=== PATIENT | female | born 1995 | race Hispanic/Latino ===

== ENCOUNTER 2018-10-11 04:08 | Emergency (ER) | payer OTHER, SELFPAY ==
[2018-10-11] MEDS ORDERED: KETOROLAC 30 MG/ML INJ ONE (05:15)
[2018-10-11 05:29] LABS: Absolute Lymphocytes (CBC) 4.3 K/uL (0.7-4.9); Basophils % 0.4 % (0-1.3); Hematocrit 36.9 % (36.0-45.0); Lymphocytes % 43.4 % (15.3-44.8); MPV 8.2 fL (7.6-11.3); RBC Red Blood Cell Count 5.27 M/uL (3.86-4.86)
[2018-10-11 05:30] LABS: Urine Bacteria 20-50 /HPF (<20); Urine RBC <5 /HPF (NONE SEEN)
[2018-10-11 05:31] LABS: Urine Culture Reflex Order NOT NEEDED
[2018-10-11 05:40] LABS: Sodium Level 143 mmol/L (136-145)
[2018-10-11 05:41] LABS: ALT/SGPT 38 U/L (12-78); AST/SGOT 15 U/L (15-37); Albumin 3.7 g/dL (3.4-5.0); Alkaline Phosphatase 95 U/L (45-117); BUN Blood Urea Nitrogen 13 mg/dL (7-18); Bicarbonate 25 mmol/L (21-32); Bilirubin Direct < 0.1 mg/dL (0-0.2); Bilirubin Total 0.1 mg/dL (0.2-1.0); Glucose Level 100 mg/dL (74-106); Lipase 152 U/L (73-393); Potassium 3.5 mmol/L (3.5-5.1); Protein, Total 7.5 g/dL (6.4-8.2)
[2018-10-11 05:45] LABS: Urine Blood TRACE (NEG); Urine Glucose NEGATIVE (NEG); Urine Protein NEGATIVE (NEG); Urine Specific Gravity 1.025 (1.005-1.030); Urine pH 5.5 (5.0-7.0)
[2018-10-11 06:33] LABS: Anisocytosis 1+; Blood Morphology Comment NOTED (NOT SEEN); Platelet Estimate ADEQ; Urine White Blood Cell Casts OK
[2018-10-11] MEDS ORDERED: MORPHINE 4 MG/ML SYR ONE (08:17)
--- NOTE | 2018-10-11 09:02 | RAD REPORT ---
EXAM DESCRIPTION: US - Abdomen Exam Limited - 10/11/2018 7:49 am CLINICAL HISTORY: Abdominal pain. COMPARISON: None. FINDINGS: Multiple gallstones. Gallbladder wall is upper limits normal thickness. The biliary tree is normal caliber. This preliminary report was given to Dr. Jones by the technologist IMPRESSION: Cholelithiasis
--- NOTE | 2018-10-11 09:50 | ER ---
Nurse's Notes [facility] Name: Henna Reina Age: 23 yrs Sex: Female : 1995 Arrival Date: 10/11/2018 Time: 04:11 Bed 8 Private MD: Diagnosis: Cholelithiasis Presentation: 10/11 04:20 Presenting complaint: Patient states: that she is having right upper quad pain. It fc started 1 week ago but its only at night. Pt also having nausea. Transition of care: patient was not received from another setting of care. Onset of symptoms was October 04, 2018. Risk Assessment: Do you want to hurt yourself or someone else? Patient reports no desire to harm self or others. Initial Sepsis Screen: Does the patient meet any 2 criteria? No. Patient's initial sepsis screen is negative. Does the patient have a suspected source of infection? No. Patient's initial sepsis screen is negative. Care prior to arrival: None. 04:20 Method Of Arrival: Ambulatory fc 04:20 Acuity: INGRID 3 fc Triage Assessment: 04:58 General: Appears uncomfortable, obese, Behavior is calm, cooperative, appropriate for age. Pain: Complains of pain in right upper quadrant Pain currently is 9 out of 10 on a pain scale. Quality of pain is described as aching, dull, pressure, Pain began 1 week ago Is episodic, Aggravated by eating. EENT: No deficits noted. Neuro: Level of Consciousness is awake, alert, obeys commands, Oriented to person, place, time, situation, Appropriate for age. Cardiovascular: No deficits noted. Respiratory: No deficits noted. GI: Abdomen is obese, Bowel sounds present X 4 quads. Abd is soft Abdomen is tender to palpation in right upper quadrant Reports upper abdominal pain, nausea. : No deficits noted. Derm: Skin is pink, warm \T\ dry. Musculoskeletal: Circulation, motion, and sensation intact. Capillary refill < 3 seconds, Range of motion: intact in all extremities. 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 - Social history:: Smoking status: Patient uses tobacco products, smokes one-half pack cigarettes per day, Patient/guardian denies using alcohol, street drugs. - Ebola Screening: : Patient negative for fever greater than or equal to 101.5 degrees Fahrenheit, and additional compatible Ebola Virus Disease symptoms Patient denies exposure to infectious person Patient denies travel to an Ebola-affected area in the 21 days before illness onset. Screenin:20 Abuse screen: Denies threats or abuse. Nutritional screening: No deficits noted. fc Tuberculosis screening: No symptoms or risk factors identified. Fall Risk None identified. Assessment: 05:23 General: Appears uncomfortable, Behavior is calm, cooperative, appropriate for age. lp1 Pain: Complains of pain in epigastric area and right upper quadrant Pain radiates to back Pain currently is 8 out of 10 on a pain scale. Quality of pain is described as sharp. Neuro: Level of Consciousness is awake, alert, obeys commands, Oriented to person, place, time, situation. Cardiovascular: Patient's skin is warm and dry. Respiratory: Respiratory effort is even, unlabored. GI: Abdomen is obese, Bowel sounds present X 4 quads. Abdomen is tender to palpation in epigastric area and right upper quadrant Reports upper abdominal pain. : No signs and/or symptoms were reported regarding the genitourinary system. EENT: No signs and/or symptoms were reported regarding the EENT system. Derm: Skin is pink, warm \T\ dry. Musculoskeletal: No deficits noted. 06:45 Reassessment: Patient and/or family updated on plan of care and expected duration. Pain lp1 level reassessed. Patient states pain decreased at this time; aware of waiting for ultrasound. 08:18 Reassessment: pt c/o of abdominal pain, rated 6/10, ERD notified, see MAR for orders. jl7 09:36 Reassessment: Patient appears in no apparent distress at this time. Patient and/or ph family updated on plan of care and expected duration. Pain level reassessed. Patient is alert, oriented x 3, equal unlabored respirations, skin warm/dry/pink. ERP at bedside to speak w/ pt, instructed to follow up w/ general surgeon, d/c home w/ prescriptions for pain and nausea medications. Vital Signs: 04:20 BP 118 / 91; Pulse 86; Resp 18; Temp 98.2(O); Pulse Ox 100% on R/A; Weight 121.11 kg fc (R); Height 5 ft. 1 in. (154.94 cm) (R); Pain 9/10; 05:45 BP 118 / 72; Pulse 73; Resp 18; Pulse Ox 100% on R/A; lp1 06:45 BP 130 / 66; Pulse 71; Resp 16; Pulse Ox 100% on R/A; Pain 5/10; lp1 08:15 BP 111 / 70; Pulse 70; Resp 16 S; Pulse Ox 99% on R/A; Pain 6/10; jl7 09:37 BP 120 / 68; Pulse 72; Resp 18; Temp 97.8; Pulse Ox 99% on R/A; ph 04:20 Body Mass Index 50.45 (121.11 kg, 154.94 cm) ED Course: 04:11 Patient arrived in ED. ds1 04:20 Arm band placed on Patient placed in an exam room, on a stretcher. fc 04:20 Patient has correct armband on for positive identification. Placed in gown. Bed in low fc position. Call light in reach. Side rails up X 1. Pulse ox on. NIBP on. 04:20 No provider procedures requiring assistance completed. fc 04:55 Triage completed. fc 05:01 Saurabh Singh MD is Attending Physician. tw4 05:22 Roxana Terry RN is Primary Nurse. lp1 07:09 Attending Physician role handed off by Saurabh Singh MD rn 07:09 Javier Jones MD is Attending Physician. rn 07:52 US Abdomen Limited In Process Unspecified. EDMS 09:27 Evan Madrigal MD is Referral Physician. rn 09:41 IV discontinued, intact, bleeding controlled, No redness/swelling at site. Pressure ph dressing applied. Administered Medications: 05:22 Drug: TORadol 30 mg Route: IVP; Site: right antecubital; lp1 06:49 Follow up: Response: Pain is decreased lp1 08:24 Drug: morphine 4 mg Route: IVP; Site: right antecubital; jl7 09:39 Follow up: Response: No adverse reaction; Pain is decreased ph 09:40 Follow up: Response: RASS: Alert and Calm (0) ph Outcome: 09:27 Discharge ordered by . rn 09:40 Discharged to home ambulatory. ph 09:40 Condition: good 09:40 Discharge instructions given to patient, Instructed on discharge instructions, follow up and referral plans. medication usage, Demonstrated understanding of instructions, follow-up care, medications, Prescriptions given X 2. 09:41 Patient left the ED. ph Signatures: Dispatcher [employer] EDMS Esperanza Mckeon RN RN Mary Chavez ds1 Javier Jones MD MD rn Pena, Laura, RN RN lp1 Geeta Echavarria RN RN ph Leal, Jahala, RN RN jl7 Saurabh Singh MD MD tw4
--- NOTE | 2018-10-11 09:51 | EDPHYS ---
Physician Documentation [facility] Name: Henna Reina Age: 23 yrs Sex: Female : 1995 Arrival Date: 10/11/2018 Time: 04:11 Bed 8 Private MD: ED Physician Javier Jones HPI: 10/11 06:28 This 23 yrs old Female presents to ER via Ambulatory with complaints of tw4 Abdominal Pain, Back Pain. 06:28 The patient presents with abdominal pain in the right upper quadrant. The symptoms do tw4 not radiate. Associated signs and symptoms: none. The symptoms are described as dull. Modifying factors: The symptoms are alleviated by nothing, the symptoms are aggravated by nothing. Severity of pain: At its worst the pain was moderate in the emergency department the pain is unchanged. The patient has not experienced similar symptoms in the past. 06:28 Onset: The symptoms/episode began/occurred 1 week(s) ago, and became worse yesterday. 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 - Social history:: Smoking status: Patient uses tobacco products, smokes one-half pack cigarettes per day, Patient/guardian denies using alcohol, street drugs. - Ebola Screening: : Patient negative for fever greater than or equal to 101.5 degrees Fahrenheit, and additional compatible Ebola Virus Disease symptoms Patient denies exposure to infectious person Patient denies travel to an Ebola-affected area in the 21 days before illness onset. ROS: 06:28 Constitutional: Negative for fever, chills, and weight loss, Cardiovascular: Negative tw4 for chest pain, palpitations, and edema, Respiratory: Negative for shortness of breath, cough, wheezing, and pleuritic chest pain, Back: Negative for injury and pain, MS/Extremity: Negative for injury and deformity, Skin: Negative for injury, rash, and discoloration, Neuro: Negative for headache, weakness, numbness, tingling, and seizure. 06:28 Abdomen/GI: Positive for abdominal pain, Negative for nausea and vomiting, nausea, vomiting, and diarrhea, nausea. Exam: 06:28 Constitutional: This is a well developed, well nourished patient who is awake, alert, tw4 and in no acute distress. Head/Face: Normocephalic, atraumatic. Chest/axilla: Normal chest wall appearance and motion. Nontender with no deformity. No lesions are appreciated. Cardiovascular: Regular rate and rhythm with a normal S1 and S2. No gallops, murmurs, or rubs. Normal PMI, no JVD. No pulse deficits. Respiratory: Lungs have equal breath sounds bilaterally, clear to auscultation and percussion. No rales, rhonchi or wheezes noted. No increased work of breathing, no retractions or nasal flaring. MS/ Extremity: Pulses equal, no cyanosis. Neurovascular intact. Full, normal range of motion. Neuro: Awake and alert, GCS 15, oriented to person, place, time, and situation. Cranial nerves II-XII grossly intact. Motor strength 5/5 in all extremities. Sensory grossly intact. Cerebellar exam normal. Normal gait. Psych: Awake, alert, with orientation to person, place and time. Behavior, mood, and affect are within normal limits. 06:28 Abdomen/GI: Inspection: abdomen appears normal, Bowel sounds: normal, Palpation: moderate abdominal tenderness, in the right upper quadrant. Vital Signs: 04:20 BP 118 / 91; Pulse 86; Resp 18; Temp 98.2(O); Pulse Ox 100% on R/A; Weight 121.11 kg fc (R); Height 5 ft. 1 in. (154.94 cm) (R); Pain 9/10; 05:45 BP 118 / 72; Pulse 73; Resp 18; Pulse Ox 100% on R/A; lp1 06:45 BP 130 / 66; Pulse 71; Resp 16; Pulse Ox 100% on R/A; Pain 5/10; lp1 08:15 BP 111 / 70; Pulse 70; Resp 16 S; Pulse Ox 99% on R/A; Pain 6/10; jl7 09:37 BP 120 / 68; Pulse 72; Resp 18; Temp 97.8; Pulse Ox 99% on R/A; ph 04:20 Body Mass Index 50.45 (121.11 kg, 154.94 cm) fc MDM: 05:01 Patient medically screened. tw4 07:09 ED course: Signed out to me pending RUQ ultrasound. . rn 09:26 Differential diagnosis: cholecystitis, Cholelithiasis, gastritis, gastroesophageal rn reflux disease, pancreatitis. Data reviewed: vital signs, nurses notes, lab test result(s), radiologic studies, ultrasound, and as a result, I will discharge patient. Counseling: I had a detailed discussion with the patient and/or guardian regarding: the historical points, exam findings, and any diagnostic results supporting the discharge/admit diagnosis, lab results, radiology results, the need for outpatient follow up, to return to the emergency department if symptoms worsen or persist or if there are any questions or concerns that arise at home. Response to treatment: the patient's symptoms have markedly improved after treatment, and as a result, I will discharge patient. Special discussion: Based on the patient's Hx, exam, and Dx evaluation, there is no indication for emergent surgery or inpatient Tx. It is understood by the patient/guardian that if the Sx's persist or worsen they need to return immediately for re-evaluation. I discussed with the patient/guardian in detail that at this point there is no indication for admission to the hospital. It is understood, however, that if the symptoms persist or worsen the patient needs to return immediately for re-evaluation. Based on the history and exam findings, there is no indication for further emergent testing or inpatient evaluation. I discussed with the patient/guardian the need to see the general surgeon for further evaluation of the symptoms. ED course: Pt with cholelithiasis, sounds like dealing with it for months, no acute infection or obstruction, will dc home with pain meds and f/u with gen surgery.. 10/11 04:55 Order name: Basic Metabolic Panel; Complete Time: 06:30 4 10/11 06:31 Interpretation: Normal except: CL 110. tw10/11 04:55 Order name: CBC with Diff; Complete Time: 07:06 4 10/11 06:31 Interpretation: Normal except: RBC 5.27; HGB 11.6; MCV 70.0; MCH 22.1; RDW 21.5; PLT tw4 410; MCHC 31.6. 10/11 04:55 Order name: Creatinine for Radiology; Complete Time: 06:30 tw4 10/11 04:55 Order name: Hepatic Function; Complete Time: 06:30 tw4 10/11 06:31 Interpretation: Normal except: GLOB 3.8; A/G 1.0; BILIT 0.1. tw4 10/11 04:55 Order name: Lipase; Complete Time: 06:30 tw4 10/11 04:55 Order name: Urine Microscopic Only; Complete Time: 06:30 tw4 10/11 06:31 Interpretation: Normal except: SQEPI 20-50; UBACT 20-50. tw4 10/11 04:55 Order name: IV Saline Lock; Complete Time: 05:09 tw4 10/11 04:55 Order name: Labs collected and sent; Complete Time: 05:10 tw4 10/11 05:12 Order name: Urine Dipstick--Ancillary (enter results); Complete Time: 06:30 ms5 10/11 05:12 Order name: Urine --Ancillary (enter results); Complete Time: 06:30 [facility] 10/11 06:32 Order name: US Abdomen Limited; Complete Time: 09:26 tw4 10/11 06:33 Order name: CBC Smear Scan; Complete Time: 07:06 EDAK 10/11 04:55 Order name: Urine Dipstick-Ancillary (obtain specimen); Complete Time: 05:04 tw4 Administered Medications: 05:22 Drug: TORadol 30 mg Route: IVP; Site: right antecubital; lp1 06:49 Follow up: Response: Pain is decreased lp1 08:24 Drug: morphine 4 mg Route: IVP; Site: right antecubital; jl7 09:39 Follow up: Response: No adverse reaction; Pain is decreased ph 09:40 Follow up: Response: RASS: Alert and Calm (0) ph Disposition: 10/11/18 09:27 Discharged to Home. Impression: Cholelithiasis. - Condition is Stable. - Discharge Instructions: Cholelithiasis. - Prescriptions for Tylenol- Codeine #3 300-30 mg Oral Tablet - take 1 tablet by ORAL route every 6 hours As needed; 20 tablet. Zofran ODT 4 mg Oral tablet,disintegrating - place 1 tablet by TRANSLINGUAL route every 8 hours As needed; 20 tablet. - Medication Reconciliation Form, Thank You Letter, Antibiotic Education, Prescription Opioid Use form. - Follow up: Evan Madrigal MD; When: As needed; Reason: Recheck today's complaints, Re-evaluation by your physician. - Problem is an ongoing problem. - Symptoms have improved. Signatures: Dispatcher [employer] EDEsperanza Mobley, RN RN Javier García MD MD rn Pena, Laura RN RN lp1 Geeta Echavarria, RN RN Charles Rivera, RN RN jl7 Saurabh Singh MD MD tw4 Corrections: (The following items were deleted from the chart) 06:29 06:28 Onset: The symptoms/episode began/occurred today, tw tw 09:41 09:27 10/11/2018 09:27 Discharged to Home. Impression: Cholelithiasis. Condition is ph Stable. Forms are Medication Reconciliation Form, Thank You Letter, Antibiotic Education, Prescription Opioid Use. Follow up: Evan Madrigal; When: As needed; Reason: Recheck today's complaints, Re-evaluation by your physician. Problem is an ongoing problem. Symptoms have improved. rn
[2018-10-11 10:15] VITALS: O2SAT 99
[2018-10-11 10:16] VITALS: BP 120/68; TEMP 97.8
== END 2018-10-11 09:41 | disposition home or self-care (01) ==
LOC: ER 04:08
DX: K80.20 Calculus of gallbladder without cholecystitis without obstruction (principal); F17.210 Nicotine dependence, cigarettes, uncomplicated
CPT/HCPCS: 36415; 76705; 80048; 80076; 81003; 81015; 81025; 83690; 85025; 96374; 96375; 99284

== ENCOUNTER 2021-01-14 09:09 | Emergency (ER) | payer SELFPAY ==
--- OUTSIDE RECORDS SUMMARY | 2021-01-14 09:13 | XMS REPORT | Continuity of Care Document ---
:1995 Author Organization [facility] t Address [address] [place] [address] Care Team Providers Name Role Phone AFRICA EDGAR Attending Clinician Unavailable Giovanni OAKES Attending Clinician Unavailable Giovanni Jones Attending Clinician Payers Payer Name Policy Type Policy Number Effective Date Expiration Date S ource Advance Directives Directive Decision Effective Termination Comments Source Date Date Healthcare Agents on N/A Univ ersity FileNameRelationshipHealthcare [facility] Agent Medical RelationshipCommunicationFelipa [facility]other[facility] Care [phone] (Mobile) Nehemiah ZavalaSignificant OtherFirst Alternate Health Care [phone] (Mobile) Problems Condition Condition Condition Status Onset Resolution Last Treating Co mments Source Name Details Category Date Date Treatment Clinician Date Nexplanon Nexplanon Disease Active 2017-02 Uni vers insertion insertion 1- ity of 00:00: [address] Encounter Encounter Disease Active 2017-02 Uni vers for for 1-08 [place] о[place] олег 00 Medical management management [place] , , unspecifie unspecifie d type d type BMI BMI Disease Active 2017-02 Univers 40.0-44.9, 40.0-44.9, 1-08 it y of adult adult 00:00: [address] Screening Screening Disease Active 2017-02 Uni vers examinatio examinatio 0-18 it y of n [place] STD [place] 00 Medi jaskaran transmitte transmitte Br anch d disease) d disease) Morbid Morbid Disease Active Univers obesity obesity 1-22 ity of 00:00: [address] Branch Essential Essential Disease Active Uni vers hypertensi hypertensi 1-22 [place] y [place], benign [place] [facility] Allergies, Adverse Reactions, Alerts Allergy Allergy Status Severity Reaction(s) Onset Inactive Treating Comm ents Source Name Type Date Date Clinician NO KNOWN Drug Active Univers ALLERGIE Class ity of S [facility] Social History Social Habit Start Date Stop Date Quantity Comments Source Tobacco use and 2018-05-28 2018-05-28 Never used Universit y of exposure 00:00:00 00:00:00 [facility] Alcohol intake 2018-05-28 2018-05-28 Current University of 00:00:00 00:00:00 non-drinker of [facility] alcohol (finding) [place] Tobacco Comment 2018-01-03 2018-01-03 1-2 cig every Univer sity of 00:00:00 00:00:00 other day [facility] History of 2013-04-26 2017-02-26 Cigarette Smoker Universi ty of tobacco use 00:00:00 00:00:00 [facility] Sex Assigned At [birth year] Universit y of 00:00:00 00:00:00 [facility] Smoking Status Start Date Stop Date Source Current some day smoker 2018-05-28 00:00:00 [facility] Medications Ordered Filled Start Stop Current Ordering Indication Dosage Frequency Signature Comments Components Source Medication Medication Date Date Medication? Clinician (SIG) Name Name traMADOL 2017-02 Yes 50mg Take 1 Univers (ULTRAM) 50 0-28 tablet by ity of mg tablet 00:00: mouth [place] [id number] every 6 Medical (six) Branch hours as needed for Pain (scale 7-10). Immunizations Ordered Filled Immunization Date Status Comments Sourc e Immunization Name Name HPV9 2018-05-28 Completed University of 00:00:00 [facility] HPV9 2017-12-24 Completed University 00:00:00 [facility] HPV9 2017-11-25 Completed University of 00:00:00 [facility] MMR 2017-11-25 Completed University 00:00:00 [facility] TDAP 2017-09-28 Completed University 00:00:00 [facility] TDAP 2015-12-07 Completed University of 00:00:00 [facility] Influenza Virus 2015-11-16 Completed Universit y of Vaccine Quad IM 3+ 00:00:00 [facility] TDAP 2011-10-06 Completed [facility] 00:00:00 [facility] Procedures This patient has no known procedures. Encounters Start End Encounter Admission Attending Care Care Encounter Source Date/Time Date/Time Type Type Clinicians Facility Department ID 2020-06-24 2020-06-24 [id number] Univers 09:00:00 09:00:00 AFRICA [id number] ity [facility] 2020-06-24 2020-06-24 [facility] [id number] Univers 09:00:00 09:00:00 AFRICA rick [facility] 2020-06-23 2020-06-23 Outpatient R ABHI [facility] [id number] Univers 13:15:00 13:15:00 JIL [id number] ity o f [facility] 2020-06-21 2020-06-21 Telephone Abhi [facility] [id number] Univers 00:00:00 00:00:00 Jil Davila 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
--- NOTE | 2021-01-14 10:39 | RAD REPORT ---
EXAM DESCRIPTION: CT - CTFB CLINICAL HISTORY: Pain to right posterior lateral molars;Facial pain COMPARISON: No comparisons TECHNIQUE: Axial 2 mm thick images of the face were obtained with sagittal and coronal reconstructio n images. All CT scans are performed using dose optimization technique as appropriate and may include automated exposure control or mA/KV adjustment according to patient size. FINDINGS: No facial fracture. Mild maxillary sinus and ethmoid air cell thickening. No mastoid effus ion. The orbits are intact. No lymphadenopathy. The parotid and submandibular glands are intact. Intr acranial contents are grossly unremarkable. The temporomandibular joints are located and unremarkable . IMPRESSION: No specific CT findings to explain right-sided facial pain. Mild sinusitis which is favo red chronic.
--- NOTE | 2021-01-14 11:01 | ER ---
Nurse's Notes [facility] Name: Henna Reina Age: 25 yrs Sex: Female : 1995 Arrival Date: 01/14/2021 Time: 09:13 Bed 17 Private MD: Diagnosis: Right facial and neck pain Presentation: 01/14 09:23 Chief complaint: Patient states: Rt side facial swelling and pain x 1day. noticed 6 swelling and pain when trying to eat. Coronavirus screen: Client denies travel out of the [place] in the last 14 days. At this time, the client does not indicate any symptoms associated with coronavirus-19. Ebola Screen: Patient negative for fever greater than or equal to 101.5 degrees Fahrenheit, and additional compatible Ebola Virus Disease symptoms. Initial Sepsis Screen: Does the patient meet any 2 criteria? No. Patient's initial sepsis screen is negative. Does the patient have a suspected source of infection? No. Patient's initial sepsis screen is negative. Risk Assessment: Do you want to hurt yourself or someone else? Patient reports no desire to harm self or others. Onset of symptoms was January 13, 2021. Care prior to arrival: Motrin yesterday. Activity prior to arrival: None. Mechanism of Injury: No Mechanism of Injury. 09:23 Method Of Arrival: Ambulatory [facility] 09:23 Acuity: INGRID 4 6 10:03 Note Pt taken to ct via wheelchair. [facility] Triage Assessment: 09:27 General: Appears Swelling noted to rt jaw line. pt able to speak in complete sentences 6 and no swelling noted to pharynx area. Pain: Complains of pain in right cheek and right jaw Pain currently is 6 out of 10 on a pain scale. Quality of pain is described as aching, Pain began Is continuous, Aggravated by eating, drinking. 09:29 General: Behavior is calm, cooperative. 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 - Social history:: Smoking status: Patient denies any tobacco usage or history of. Screenin:29 Abuse screen: Denies threats or abuse. Nutritional screening: No deficits noted. 6 Tuberculosis screening: No symptoms or risk factors identified. Fall Risk None identified. Assessment: 09:30 General: Appears in no apparent distress. Behavior is calm, cooperative. Pain: 6 Complains of pain in right cheek and right jaw Pain currently is 6 out of 10 on a pain scale. Quality of pain is described as aching, tender, Pain began 1 day ago. Is continuous, Alleviated by rest, Aggravated by eating, drinking, Noted to be quiet/stoic, Also complains of decreased appetite. Vital Signs: 09:23 BP 135 / 82; Pulse 87; Resp 17; Temp 98.2; Pulse Ox 100% ; Weight 122.47 kg; Height 5 [facility] ft. 1 in. (154.94 cm); Pain 6/10; 11:20 BP 111 / 62; Pulse 74; Resp 18; Temp 98.4; jh6 09:23 Body Mass Index 51.02 (122.47 kg, 154.94 cm) [facility] ED Course: 09:13 Patient arrived in ED. mr 09:15 Andre Ramachandran MD is Attending Physician. kdr 09:23 Lizabeth Constantino, RORY is Primary Nurse. 6 09:27 Triage completed. [facility] 09:29 Arm band placed on right wrist. [facility] 09:30 Call light in reach. Side rails up X 1. 6 10:02 CT ordered. 6 10:04 CT Facial Bones W/O Con In Process Unspecified. EDVT 11:29 No provider procedures requiring assistance completed. 6 11:29 Patient did not have IV access during this emergency room visit. NO IV STARTED. 6 Administered Medications: No medications were administered Outcome: 11:00 Discharge ordered by . kdr 11:29 Discharged to home ambulatory. jh6 11:29 Condition: unchanged 11:29 Discharge instructions given to patient, Instructed on discharge instructions, follow up and referral plans. medication usage, Demonstrated understanding of instructions, follow-up care, medications, Prescriptions given X 1. 11:31 Patient left the ED. 6 Signatures: Dispatcher [employer] EDVT Andre Ramachandran MD MD [facility] Lorraine Treadwell mr Lizabeth Constantino, RN RN [facility]
--- NOTE | 2021-01-14 11:01 | EDPHYS ---
Physician Documentation [facility] Name: Henna Reina Age: 25 yrs Sex: Female : 1995 Arrival Date: 01/14/2021 Time: 09:13 Bed 17 Private MD: ED Physician Andre Ramachandran HPI: 01/14 09:52 This 25 yrs old Female presents to ER via Ambulatory with complaints of Mouth kdr Swelling. 09:52 The patient presents with pain, The patient complains of pain to her right upper kdr posterior molar region. Comfort began yesterday. Complains of some mild discomfort with swallowing. She denies any airway or respiratory compromise. She does not appear to be toxic or in any acute distress at this time.. The problem is located in the upper right third molar and upper right second molar. Onset: The symptoms/episode began/occurred yesterday. Duration: The symptoms are continuous, Slightly better today. Modifying factors: The symptoms are alleviated by nothing, the symptoms are aggravated by chewing, Swallowing. Associated signs and symptoms: The patient has no apparent associated signs or symptoms. Severity of symptoms: At their worst the symptoms were mild, in the emergency department the symptoms are unchanged. The patient has not experienced similar symptoms in the past. The patient has not recently seen a physician. 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 - Social history:: Smoking status: Patient denies any tobacco usage or history of. ROS: 09:52 Constitutional: Negative for fever, chills, and weight loss, Eyes: Negative for injury, kdr pain, redness, and discharge, Neck: Negative for injury, pain, and swelling, Cardiovascular: Negative for chest pain, palpitations, and edema, Respiratory: Negative for shortness of breath, cough, wheezing, and pleuritic chest pain, Abdomen/GI: Negative for abdominal pain, nausea, vomiting, diarrhea, and constipation, Back: Negative for injury and pain, : Negative for injury, bleeding, discharge, and swelling, MS/Extremity: Negative for injury and deformity, Skin: Negative for injury, rash, and discoloration, Neuro: Negative for headache, weakness, numbness, tingling, and seizure activity. Psych: Negative for depression, anxiety, suicide ideation, homicidal ideation, and hallucinations, Allergy/Immunology: Negative for hives, rash, and allergies, Endocrine: Negative for neck swelling, polydipsia, polyuria, polyphagia, and marked weight changes, Hematologic/Lymphatic: Negative for swollen nodes, abnormal bleeding, and unusual bruising. 09:52 ENT: Positive for dental pain, Very slight increase in discomfort with swallowing. Exam: 09:52 Constitutional: This is a well developed, well nourished patient who is awake, alert, kdr and in no acute distress. Head/Face: Normocephalic, atraumatic. Eyes: Pupils equal round and reactive to light, extra-ocular motions intact. Lids and lashes normal. Conjunctiva and sclera are non-icteric and not injected. Cornea within normal limits. Periorbital areas with no swelling, redness, or edema. Neck: Trachea midline, no thyromegaly or masses palpated, and no cervical lymphadenopathy. Supple, full range of motion without nuchal rigidity, or vertebral point tenderness. No Meningismus. Chest/axilla: Normal chest wall appearance and motion. Nontender with no deformity. No lesions are appreciated. Cardiovascular: Regular rate and rhythm with a normal S1 and S2. No gallops, murmurs, or rubs. Normal PMI, no JVD. No pulse deficits. Respiratory: Lungs have equal breath sounds bilaterally, clear to auscultation and percussion. No rales, rhonchi or wheezes noted. No increased work of breathing, no retractions or nasal flaring. Abdomen/GI: Soft, non-tender, with normal bowel sounds. No distension or tympany. No guarding or rebound. No evidence of tenderness throughout. Back: No spinal tenderness. No costovertebral tenderness. Full range of motion. Skin: Warm, dry with normal turgor. Normal color with no rashes, no lesions, and no evidence of cellulitis. MS/ Extremity: Pulses equal, no cyanosis. Neurovascular intact. Full, normal range of motion. Neuro: Awake and alert, GCS 15, oriented to person, place, time, and situation. Cranial nerves II-XII grossly intact. Motor strength 5/5 in all extremities. Sensory grossly intact. Cerebellar exam normal. Normal gait. Psych: Awake, alert, with orientation to person, place and time. Behavior, mood, and affect are within normal limits. 09:52 ENT: Dental exam: pain, that is mild, specifically in the upper right third molar (#1) and upper right second molar (#2), Voice: is normal. Vital Signs: 09:23 BP 135 / 82; Pulse 87; Resp 17; Temp 98.2; Pulse Ox 100% ; Weight 122.47 kg; Height 5 jh6 ft. 1 in. (154.94 cm); Pain 6/10; 11:20 BP 111 / 62; Pulse 74; Resp 18; Temp 98.4; jh6 09:23 Body Mass Index 51.02 (122.47 kg, 154.94 cm) [facility] MDM: 09:52 Data reviewed: vital signs, nurses notes, lab test result(s), radiologic studies. kdr Counseling: I had a detailed discussion with the patient and/or guardian regarding: the historical points, exam findings, and any diagnostic results supporting the discharge/admit diagnosis, radiology results, the need for outpatient follow up. 11:00 Patient medically screened. kdr 01/14 09:51 Order name: CT Facial Bones W/O Con; Complete Time: 10:59 kdr Administered Medications: No medications were administered Disposition Summary: 01/14/21 11:00 Discharge Ordered Location: Home kdr Problem: new kdr Symptoms: have improved kdr Condition: Stable kdr Diagnosis - Right facial and neck pain kdr Followup: kdr - With: Private Physician - When: 2 - 3 days - Reason: If symptoms return, Further diagnostic work-up, Recheck today's complaints, Continuance of care, Re-evaluation by your physician Discharge Instructions: - Discharge Summary Sheet kdr - Dental Pain, [id number] kdr - Sore Throat, [id number] kdr Forms: - Medication Reconciliation Form kdr - Thank You Letter kdr Prescriptions: - Ibuprofen 600 mg Oral Tablet - take 1 tablet by ORAL route every 6 hours As needed take with food; 30 tablet; kdr Refills: 0, Product Selection Permitted Signatures: Dispatcher [employer] Andre Morin MD MD kdr Lizabeth Constantino RN RN 6
[2021-01-14 12:15] VITALS: O2SAT 100
[2021-01-14 12:16] VITALS: BP 111/62; TEMP 98.4
== END 2021-01-14 11:31 | disposition home or self-care (01) ==
LOC: ER 09:09
DX: K08.89 Other specified disorders of teeth and supporting structures (principal); R51.9 Headache, unspecified; M54.2 Cervicalgia
CPT/HCPCS: 70486; 76377; 99283

== ENCOUNTER 2021-08-29 16:12 | Emergency (ER) | payer SELFPAY ==
[2021-08-29] MEDS ORDERED: LIDOCAINE 1% MPF 5 ML VIAL ONE (17:23)
[2021-08-29] MEDS ORDERED: BUPIVACAINE 0.25% PF 10 ML VIAL ONE (17:24)
--- NOTE | 2021-08-29 17:40 | ER ---
Nurse's Notes [facility] Name: Henna Reina Age: 26 yrs Sex: Female : 1995 Arrival Date: 08/29/2021 Time: 16:14 Bed 13 Private MD: Diagnosis: Cellulitis of abdominal wall;Cutaneous abscess of abdominal wall;Headache Presentation: 08/29 16:33 Chief complaint: Patient states: pt reports having a abscess on upper left abdominal. [place] Coronavirus screen: Vaccine status: Patient reports being unvaccinated. Ebola Screen: Patient denies travel to an Ebola-affected area in the 21 days before illness onset. Initial Sepsis Screen: Does the patient meet any 2 criteria? HR > 90 bpm. No. Patient's initial sepsis screen is negative. Does the patient have a suspected source of infection? Yes: Skin breakdown/wound. Risk Assessment: Do you want to hurt yourself or someone else? Patient reports no desire to harm self or others. Onset of symptoms was July 2021. 16:33 Method Of Arrival: Ambulatory [facility] 16:33 Acuity: INGRID 3 [facility] Triage Assessment: 16:33 Headache History: The patient has had previous headaches. General: Appears in no bonilla apparent distress. Behavior is calm, cooperative. Pain: Pain currently is 8 out of 10 on a pain scale. Pain began gradually, Also complains of wisdom teeth. Neuro: Level of Consciousness is awake, alert, obeys commands, Oriented to person, place, time, situation. 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 - Social history:: Smoking status: Reported history of juuling and/or vaping. Screenin:30 Abuse screen: Denies threats or abuse. Denies injuries from another. [facility] 16:30 Nutritional screening: No deficits noted. Tuberculosis screening: No symptoms or risk 6 factors identified. Fall Risk None identified. Assessment: 16:30 General: Appears in no apparent distress. Behavior is calm, cooperative. [facility] 16:30 Pain: Complains of pain in left upper quadrant Pain currently is 4 out of 10 on a pain 6 scale. Quality of pain is described as burning, sharp, Pain began suddenly, Is continuous. Derm: Abscess located on left upper quadrant is dime sized, has no drainage, is red, Reports burning, pain. 18:15 Reassessment: no reaction to meds given. verbal understanding of wound care and follow 6 up meds. Vital Signs: 16:33 BP 129 / 84; Pulse 112; Resp 19; Temp 98.3(O); Pulse Ox 100% ; Weight 107.5 kg; Height bonilla 5 ft. 1 in. (154.94 cm); 16:33 Body Mass Index 44.78 (107.50 kg, 154.94 cm) ED Course: 16:14 Patient arrived in ED. j6 16:33 Andre Ramachandran MD is Attending Physician. [facility] 16:33 Arm band placed on. 16:35 Bed in low position. Call light in reach. jh6 16:38 Triage completed. [facility]illa 17:02 Lizabeth Constantino, RN is Primary Nurse. 6 17:20 Assist provider with I \T\ D: of an abscess on left upper abd area. jh6 17:54 Patient did not have IV access during this emergency room visit. 6 Administered Medications: 17:25 Drug: Lidocaine (1 %) 5 mg Route: Infiltration; jh6 17:25 Drug: Marcaine (bupivacaine) (0.25 %) 1 ml Route: Infiltration; jh6 17:50 Drug: KeFLEX (cephalexin) 500 mg Route: PO; jh6 18:15 Follow up: Response: No adverse reaction 6 18:05 Drug: Ibuprofen 800 mg Route: PO; jh6 18:16 Follow up: Response: No adverse reaction [facility] Medication: 17:54 VIS not applicable for this client. 6 Outcome: 17:39 Discharge ordered by . kdr 17:54 Discharged to home ambulatory. jh6 17:54 Condition: good 17:54 Discharge instructions given to patient, Instructed on discharge instructions, follow up and referral plans. Demonstrated understanding of instructions, follow-up care, medications, wound care, Prescriptions given X 2. 18:16 Patient left the ED. 6 Signatures: Andre Ramachandran MD MD kdr Jeffries, Jennifer j6 Lizabeth Constantino, RN RN [facility] Au-Stager, Tosin, RN RN bon[facility]
--- NOTE | 2021-08-29 17:40 | EDPHYS ---
Physician Documentation [facility] Name: Henna Reina Age: 26 yrs Sex: Female : 1995 Arrival Date: 08/29/2021 Time: 16:14 Bed 13 Private MD: ED Physician Andre Ramachandran HPI: 08/29 17:42 This 26 yrs old Female presents to ER via Ambulatory with complaints of kdr Abscess, Headache. 17:42 The patient presents with an abscess of the , The patient presents with cellulitis of kdr the left upper quadrant. Description: The affected area is small, confluent, erythematous, fluctuant, pointed, raised, swollen, tense, warm. Onset: The symptoms/episode began/occurred 3 day(s) ago. Possible cause(s): unknown. Associated signs and symptoms: Pertinent positives: headache, Pertinent negatives:. Modifying factors: the symptoms are alleviated by nothing, the symptoms are aggravated by pressure, squeezing the lesion and expressing the contents, touching. Severity of symptoms: At their worst the symptoms were mild, in the emergency department the symptoms are unchanged. The patient has not experienced similar symptoms in the past. The patient has not recently seen a physician. 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 - Social history:: Smoking status: Reported history of juuling and/or vaping. ROS: 17:42 Constitutional: Negative for fever, chills, and weight loss, Eyes: Negative for injury, kdr pain, redness, and discharge, Neck: Negative for injury, pain, and swelling, Cardiovascular: Negative for chest pain, palpitations, and edema, Abdomen/GI: Negative for abdominal pain, nausea, vomiting, diarrhea, and constipation, Back: Negative for injury and pain, : Negative for injury, bleeding, discharge, and swelling, MS/Extremity: Negative for injury and deformity, Skin: Negative for injury, rash, and discoloration. 17:42 Abdomen/GI: Positive for Patient has a 1 cm diameter raised pointing fluctuant area on the anterior aspect of her left upper quadrant. She had attempted to open up the abscess and get it draining last week but it did not fully drain. There was some foul-smelling drainage.. Exam: 17:42 Constitutional: This is a well developed, well nourished patient who is awake, alert, kdr and in no acute distress. Head/Face: Normocephalic, atraumatic. Eyes: Pupils equal round and reactive to light, extra-ocular motions intact. Lids and lashes normal. Conjunctiva and sclera are non-icteric and not injected. Cornea within normal limits. Periorbital areas with no swelling, redness, or edema. Neck: Trachea midline, no thyromegaly or masses palpated, and no cervical lymphadenopathy. Supple, full range of motion without nuchal rigidity, or vertebral point tenderness. No Meningismus. Chest/axilla: Normal chest wall appearance and motion. Nontender with no deformity. No lesions are appreciated. Cardiovascular: Regular rate and rhythm with a normal S1 and S2. No gallops, murmurs, or rubs. Normal PMI, no JVD. No pulse deficits. Abdomen/GI: Soft, non-tender, with normal bowel sounds. No distension or tympany. No guarding or rebound. No evidence of tenderness throughout. Back: No spinal tenderness. No costovertebral tenderness. Full range of motion. Skin: Warm, dry with normal turgor. Normal color with no rashes, no lesions, and no evidence of cellulitis. MS/ Extremity: Pulses equal, no cyanosis. Neurovascular intact. Full, normal range of motion. Neuro: Awake and alert, GCS 15, oriented to person, place, time, and situation. Cranial nerves II-XII grossly intact. Motor strength 5/5 in all extremities. Sensory grossly intact. Cerebellar exam normal. Normal gait. 17:42 Abdomen/GI: There is a lesion in the left upper quadrant as described above that we will need I\T\D.. Vital Signs: 16:33 BP 129 / 84; Pulse 112; Resp 19; Temp 98.3(O); Pulse Ox 100% ; Weight 107.5 kg; Height bonilla 5 ft. 1 in. (154.94 cm); 16:33 Body Mass Index 44.78 (107.50 kg, 154.94 cm) [facility] Procedures: 17:42 I \T\ D: Incision and drainage was performed for an abscess of the left left upper kdr quadrant Prepped with Hibiclens. Anesthetized with 2 ml's 1% Lidocaine w/ Epi. Marcaine. Incised with #11 blade. Drained small amount Packed with sterile gauze, Dressing: sterile 4x4 gauze, non-Adherent dressing, telfa, the patient tolerated the procedure well. MDM: 17:39 Patient medically screened. kdr 17:51 Data reviewed: vital signs, lab test result(s), radiologic studies. Counseling: I had a kdr detailed discussion with the patient and/or guardian regarding: the historical points, exam findings, and any diagnostic results supporting the discharge/admit diagnosis, the need for outpatient follow up. Administered Medications: 17:25 Drug: Lidocaine (1 %) 5 mg Route: Infiltration; [facility] 17:25 Drug: Marcaine (bupivacaine) (0.25 %) 1 ml Route: Infiltration; [facility] 17:50 Drug: KeFLEX (cephalexin) 500 mg Route: PO; [facility] 18:15 Follow up: Response: No adverse reaction [facility] 18:05 Drug: Ibuprofen 800 mg Route: PO; [facility] 18:16 Follow up: Response: No adverse reaction [facility] Disposition Summary: 08/29/21 17:39 Discharge Ordered Location: Home kdr Problem: new kdr Symptoms: have improved kdr Condition: Stable kdr Diagnosis - Cellulitis of abdominal wall kdr - Cutaneous abscess of abdominal wall kdr - Headache kdr Followup: kdr - With: Private Physician - When: 2 - 3 days - Reason: If symptoms return, Further diagnostic work-up, Recheck today's complaints, Continuance of care, Re-evaluation by your physician Discharge Instructions: - Discharge Summary Sheet kdr - Skin Abscess kdr - Cellulitis, Adult kdr - General Headache Without Cause kdr Forms: - Medication Reconciliation Form kdr - Thank You Letter kdr - Antibiotic Education kdr - Work release form iw Prescriptions: - Cephalexin 500 mg Oral Capsule - take 1 capsule by ORAL route every 12 hours for 5 days; 10 capsule; Refills: 0, kdr Product Selection Permitted - Ibuprofen 600 mg Oral Tablet - take 1 tablet by ORAL route every 6 hours As needed take with food; 30 tablet; kdr Refills: 0, Product Selection Permitted Signatures: Andre Ramachandran MD MD kdr Hastedt, Jennifer, RN RN [facility] Tosin Petersen RN RN bon[facility]
[2021-08-29] MEDS ORDERED: CEPHALEXIN 250 MG CAP ONE (17:51)
[2021-08-29] MEDS ORDERED: IBUPROFEN 400 MG TAB ONE (18:05)
[2021-08-29 19:50] VITALS: BP 129/84; TEMP 98.3; O2SAT 100
--- OUTSIDE RECORDS SUMMARY | 2021-09-14 11:19 | XMS REPORT | Continuity of Care Document ---
:1995 Author Organization [facility] t Address [address] [place] [address] Care Team Providers Name Role Phone Pcp, Patient Does Not Have A Primary Care Physician [id number] Cookie EDGAR Attending Clinician Unavailable Cookie Edgar DO Attending Clinician Doctor Unassigned, Name Attending Clinician Unavailable Tala COPE, N Attending Clinician Thong EDGAR Attending Clinician Unavailable Giovanni MOE Attending Clinician Unavailable Giovanni Jones Attending Clinician Payers Payer Name Policy Type Policy Number Effective Date Expiration Date S ource Problems Condition Condition Condition Status Onset Resolution Last Treating Co mments Source Name Details Category Date Date Treatment Clinician Date Nexplanon Nexplanon Disease Active 2017-02 Uni vers insertion insertion 03-26 ity of 00:00: [address] Encounter Encounter Disease Active 2017-02 Uni vers for for 08 [place] 00 Medical management management Br anch , , unspecifie unspecifie d type d type BMI BMI Disease Active 2017-02 Univers 40.0-44.9, 40.0-44.9, 1-08 it y of adult adult 00:00: [address] Screening Screening Disease Active 2017-02 Uni vers examinatio examinatio 0-18 it y of n [place] STD [place] Medi jaskaran transmitte transmitte Br anch d disease) d disease) Morbid Morbid Disease Active Univers obesity obesity 03-19 ity of 00:00: [address] Branch Essential Essential Disease Active Uni vers hypertensi hypertensi - [place] benign [place] [facility] Allergies, Adverse Reactions, Alerts Allergy Allergy Status Severity Reaction(s) Onset Inactive Treating Comm ents Source Name Type Date Date Clinician NO KNOWN Drug Active Univers ALLERGIE Class ity of S [facility] Social History Social Habit Start Date Stop Date Quantity Comments Source Exposure to Not sure [facility] SARS-CoV-2 [facility] (event) [place] Alcohol intake 2021-07-07 2021-07-07 0 /d University of 00:00:00 00:00:00 [facility] Tobacco use and 2018-01-03 2018-01-03 Never used Universit y of exposure 00:00:00 00:00:00 [facility] Tobacco Comment 2018-01-03 2018-01-03 1-2 cig every Univer sity of 00:00:00 00:00:00 other day [facility] History of 2013-04-26 2017-02-26 Cigarette Smoker Universi ty of tobacco use 00:00:00 00:00:00 [facility] Sex Assigned At [birth year] Universit y of 00:00:00 00:00:00 [facility] Smoking Status Start Date Stop Date Source Current some day smoker 2018-01-03 00:00:00 Univ ersity of [facility] Medications Ordered Filled Start Stop Current Ordering Indication Dosage Frequency Signature Comments Components Source Medication Medication Date Date Medication? Clinician (SIG) Name Name clindamycin 2020-02- No [id number] 300mg Take 1 Univers 300 mg 03-17 capsule by ity of capsule 00:00: 05:59 mouth 4 [place] 00 :00 (four) Medical times Branch daily for 7 days. traMADOL 2017-02 Yes 50mg Take 1 Univers (ULTRAM) 50 0-28 tablet by ity of mg tablet 00:00: mouth [place] 00 every 6 Medical (six) Branch hours as needed for Pain (scale 7-10). traMADOL 2017-02 Yes 50mg Take 1 Univers (ULTRAM) 50 0-28 tablet by ity of mg tablet 00:00: mouth [place] 00 every 6 Medical (six) Branch hours as needed for Pain (scale 7-10). traMADOL 2017-02 Yes 50mg Take 1 Univers (ULTRAM) 50 0-28 tablet by ity of mg tablet 00:00: mouth [place] 00 every 6 Medical (six) Branch hours as needed for Pain (scale 7-10). traMADOL 2017-02 Yes 50mg Take 1 Univers (ULTRAM) 50 0-28 tablet by ity of mg tablet 00:00: mouth [place] 00 every 6 Medical (six) Branch hours as needed for Pain (scale 7-10). traMADOL 2017-02 Yes 50mg Take 1 Univers (ULTRAM) 50 0-28 tablet by ity of mg tablet 00:00: mouth [place] 00 every 6 Medical (six) Branch hours as needed for Pain (scale 7-10). Immunizations Ordered Filled Immunization Date Status Comments [facility] e Immunization Name Name [facility] 2018-05-28 Completed University of 00:00:00 [facility] 2018-05-28 Completed University of 00:00:00 [facility] 2018-05-28 Completed University of 00:00:00 [facility] 2018-05-28 Completed University of 00:00:00 [facility] 2018-05-28 Completed University of 00:00:00 [facility] 2017-12-24 Completed University of 00:00:00 [facility] 2017-12-24 Completed University of 00:00:00 [facility] 2017-12-24 Completed University of 00:00:00 [facility] HPV9 2017-12-24 Completed University of 00:00:00 [facility] HPV9 2017-12-24 Completed University of 00:00:00 [facility] 2017-11-25 Completed University of 00:00:00 [facility] MMR 2017-11-25 Completed University of 00:00:00 [facility] HPV9 2017-11-25 Completed University of 00:00:00 [facility] MMR 2017-11-25 Completed University of 00:00:00 [facility] 2017-11-25 Completed University of 00:00:00 [facility] MMR 2017-11-25 Completed University of 00:00:00 [facility] HPV9 2017-11-25 Completed University of 00:00:00 [facility] MMR 2017-11-25 Completed University of 00:00:00 [facility] HPV9 2017-11-25 Completed University of 00:00:00 [facility] MMR 2017-11-25 Completed University of 00:00:00 [facility] Branch TDAP 2017-09-28 Completed University of 00:00:00 [facility] TDAP 2017-09-28 Completed University of 00:00:00 [facility] TDAP 2017-09-28 Completed University of 00:00:00 [facility] TDAP 2017-09-28 Completed University of 00:00:00 [facility] TDAP 2017-09-28 Completed University of 00:00:00 [facility] TDAP 2015-12-07 Completed University of 00:00:00 [facility] TDAP 2015-12-07 Completed University of 00:00:00 [facility] TDAP 2015-12-07 Completed University of 00:00:00 [facility] TDAP 2015-12-07 Completed University of 00:00:00 [facility] TDAP 2015-12-07 Completed University of 00:00:00 [facility] Influenza Virus 2015-11-16 Completed Universit y of Vaccine Quad IM 3+ 00:00:00 [facility] Influenza Virus 2015-11-16 Completed Universit y of Vaccine Quad IM 3+ 00:00:00 [facility] Influenza Virus 2015-11-16 Completed Universit y of Vaccine Quad IM 3+ 00:00:00 [facility] Influenza Virus 2015-11-16 Completed Universit y of Vaccine Quad IM 3+ 00:00:00 [facility] Influenza Virus 2015-11-16 Completed Universit y of Vaccine Quad IM 3+ 00:00:00 [facility] TDAP 2011-10-06 Completed University of 00:00:00 [facility] TDAP 2011-10-06 Completed University of 00:00:00 [facility] TDAP 2011-10-06 Completed University of 00:00:00 [facility] TDAP 2011-10-06 Completed University of 00:00:00 [facility] TDAP 2011-10-06 Completed University of 00:00:00 [facility] Vital Signs Vital Name Observation Time Observation Value Comments Source Systolic blood 2021-07-07 14:47:00 135 mm[Hg] Univer sity of pressure [place] [facility] Diastolic blood 2021-07-07 14:47:00 78 mm[Hg] Unive rsity of pressure [place] [facility] Heart rate 2021-07-07 14:47:00 84 /min Universi ty of [facility] Body temperature 2021-07-07 14:47:00 36.22 Nighat Univ ersity of [place] [facility] Respiratory rate 2021-07-07 14:47:00 18 /min Univ ersity of [place] [facility] Body height 2021-07-07 14:47:00 154.9 cm [facility]i ty [facility] Body weight 2021-07-07 14:47:00 114.306 kg Universi ty [facility] [place] [facility] BMI 2021-07-07 14:47:00 47.61 kg/m2 Universi ty [facility] Oxygen saturation in 2021-07-07 14:47:00 98 /min University of Arterial blood by [facility] Pulse oximetry Branch Systolic blood 2021-01-15 16:01:00 133 mm[Hg] Univer sity of pressure [facility] Diastolic blood 2021-01-15 16:01:00 80 mm[Hg] Unive rsity of pressure [facility] Heart rate 2021-01-15 16:01:00 103 /min Universi ty [facility] [place] [facility] Body temperature 2021-01-15 16:01:00 37.11 Nighat Univ ersity of [place] [facility] Respiratory rate 2021-01-15 16:01:00 18 /min Univ ersity of [place] [facility] [place] Body height 2021-01-15 16:01:00 154.9 cm Universi ty [facility] [place] [facility] Body weight 2021-01-15 16:01:00 122.471 kg Universi ty [facility] [place] [facility] BMI 2021-01-15 16:01:00 51.02 kg/m2 [facility]i ty [facility] [place] [facility] Oxygen saturation in 2021-01-15 16:01:00 98 /min University of Arterial blood by [place] [employer] [facility] Pulse oximetry Branch Procedures Procedure Date / Time Performed Performing Clinician Sourc e RAPID STREP SCREEN FOR 2021-07-07 14:52:00 Gregoria Edgar [facility] A Medical Branch NOTICE OF PRIVACY 2021-07-07 14:41:32 Doctor Unassigned, No Univ [facility] PRACTICES Name Medical Branch CONSENT/REFUSAL FOR 2021-07-07 14:41:11 Doctor Unassigned, No [facility] DIAGNOSIS AND [facility] TREATMENT ASSIGNMENT OF BENEFITS 2021-01-15 16:11:51 Doctor Unassigned, No [facility] Encounters Start End Encounter Admission Attending Care Care Encounter Source Date/Time Date/Time Type Type Clinicians Facility Department ID 2021-07-07 2021-07-07 Emergency X TALA [facility] ERT [id number] Univers 09:50:00 11:12:00 GREGORIA ity [facility] 2021-07-07 2021-07-07 [facility] [id number] Univers 09:50:00 11:12:00 Gregoria JOHNSON [id number] ity of [place] [id number] [facility] [id number] [place] [id number] [place] 2021-07-07 2021-07-07 Orders Doctor GARIBAY [id number] Univers 00:00:00 00:00:00 Only Unassigned, ROBIN [id number] ity of [place] [facility] [id number] Kay[place] as [id number] [facility] 009 Branch 2021-03-28 2021-03-28 [facility] [id number] Univers 00:00:00 00:00:00 Hermila 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 [id number] it y of [facility] [id number] [place] as MATERNAL [id number] Med ical & CHILD [address] [place] [address] 2021-01-15 2021-01-15 Emergency [facility] [id number] Univers 10:02:00 10:22:00 GREGORIA rick [facility] 2021-01-15 2021-01-15 [facility] [id number] Univers 10:02:00 10:22:00 Gregoria JOHNSON [id number] ity of [place] [id number] [facility] [id number] [address] 2020-06-24 2020-06-24 Outpatient R TALA, [facility] [id number] Univers 09:00:00 09:00:00 HERMILA [id number] ity [facility] 2020-06-24 2020-06-24 [facility] [id number] Univers 09:00:00 09:00:00 HERMILA itpark [facility] 2020-06-23 2020-06-23 [facility] [id number] Univers 13:15:00 13:15:00 JIL [id number] ity o f [facility] 2020-06-21 2020-06-21 [facility] [id number] Univers 00:00:00 00:00:00 Jil Davila 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
== END 2021-08-29 18:16 | disposition home or self-care (01) ==
LOC: ER 16:12
PROC: 0H97XZZ Drainage of Abdomen Skin, External Approach (ICD-10-PCS; principal; 2021-08-29)
DX: L02.211 Cutaneous abscess of abdominal wall (principal); L03.311 Cellulitis of abdominal wall; R51.9 Headache, unspecified
CPT/HCPCS: 99283

== ENCOUNTER 2022-07-25 19:30 | Emergency (ER) | payer SELFPAY ==
--- OUTSIDE RECORDS SUMMARY | 2022-07-25 19:34 | XMS REPORT | Continuity of Care Document ---
:1995 Author Organization [facility] t Address [address] [facility]. [address] [place] [address] Care Team Providers Name Role Phone PCP, PATIENT DOES NOT HAVE A Primary Care Physician Unavaila NUHA Peacock Attending Clinician Unavailable NUHA REIS Attending Clinician Unavailable MARCA Attending Clinician Unavailable GREGORIA EDGAR Attending Clinician Unavailable Gregoria Edgar DO Attending Clinician Doctor Unassigned, [place] Attending Clinician Unavailable Hermila Oleary Attending Clinician HERMILA EDGAR Attending Clinician Unavailable Jil Jones Attending Clinician HASEEB Admitting Clinician Unavailable Payers Payer Name Policy Type Policy Number Effective Date Expiration Date S ource Problems Condition Condition Condition Status Onset Resolution Last Treating Co mments Source Name Details Category Date Date Treatment Clinician Date Nexplanon Nexplanon Disease Active 2017-02 Uni vers insertion insertion 03-26 ity of 00:00: [address] Branch Encounter Encounter Disease Active 2017-02 Uni vers for for 03-05 [place] 00 Medical management management Br anch , , unspecifie unspecifie d type d type BMI BMI Disease Active 2017-02 Univers 40.0-44.9, 40.0-44.9, -08 it y of adult adult 00:00: [place] 00 [facility] Screening Screening Disease Active 2017-02 Uni vers examinatio examinatio 0-18 it y of n for STD n [place] STD [place] ([place] (sexually 00 Medi jaskaran transmitte transmitte Br anch d disease) d disease) Morbid Morbid Disease Active Univers obesity obesity 1-22 ity of 00:00: [place] 00 [facility] Branch Essential Essential Disease Active Uni vers hypertensi hypertensi 1-22 [place] of on, benign [place] [facility] Allergies, Adverse Reactions, Alerts Allergy Allergy Status Severity Reaction(s) Onset Inactive Treating Comm ents Source Name Type Date Date Clinician NO KNOWN Drug Active Univers ALLERGIE Class ity of S [facility] Social History Social Habit Start Date Stop Date Quantity Comments Source Exposure to Not sure [place] of SARS-CoV-2 [place] [facility] (event) Branch Alcohol intake 2021-07-07 2021-07-07 0 /d University of 00:00:00 00:00:00 [facility] Tobacco use and 2018-01-03 2018-01-03 Never used Universit y of exposure 00:00:00 00:00:00 [facility] Tobacco Comment 2018-01-03 2018-01-03 1-2 cig every Univer sity of 00:00:00 00:00:[address] [facility] History of 2013-04-26 2017-02-26 Cigarette Smoker Universi ty of tobacco use 00:00:00 00:00:00 [facility] Sex Assigned At [birth year] Universit y of 00:00:00 00:00:00 [facility] Smoking Status Start Date Stop Date Source Never Smoker Ole [facility] Program Current some day smoker 2018-01-03 00:00:00 [facility] Medications Ordered Filled Start Stop Current Ordering Indication Dosage Frequency Signature Comments Components Source Medication Medication Date Date Medication? Clinician (SIG) Name Name clindamycin 2020-02- No [id number] 300mg Take 1 Univers 300 mg 1-20 01-23 capsule by ity of capsule 00:00: 05:59 mouth 4 [place] 00 :00 (four) Medical times [place] daily for 7 days. traMADOL 2017-02 Yes [...] hours as needed for Pain (scale 7-10). phentermine phentermine No phentermin [place] 37.5 mg 37.5 mg e 37.5 mg da tablet TAKE tablet TAKE tablet [facility] ONE (1) ONE (1) TAKE ONE al TABLET(S) TABLET(S) (1) Healt h BY MOUTH BY MOUTH TABLET(S) Ou treac ONCE A DAY. ONCE A DAY. BY MOUTH h ONCE A Program DAY. Immunizations Ordered Filled Immunization Date Status Comments [facility] e Immunization Name Name [facility] 2018-05-28 Completed University :: [facility] 2018-05-28 Completed University : [facility] 2018-05-28 Completed University :: [facility] 2018-05-28 Completed University :: [facility] 2018-05-28 Completed University :: [facility] 2017-12-24 Completed University :: [facility] 2017-12-24 Completed University :: [facility] 2017-12-24 Completed University :: [facility] 2017-12-24 Completed University of 00:00:00 [facility] HPV9 2017-12-24 Completed University of 00:00:00 [facility] HPV9 2017-11-25 Completed University of 00:00:00 [facility] MMR 2017-11-25 Completed University of 00:00:00 [facility] HPV9 2017-11-25 Completed University of 00:00:00 [facility] MMR 2017-11-25 Completed University of 00:00:00 [facility] HPV9 2017-11-25 Completed University of 00:00:00 [facility] MMR 2017-11-25 Completed University of 00:00:00 [facility] HPV9 2017-11-25 Completed University of 00:00:00 [facility] MMR 2017-11-25 Completed University of 00:00:00 [facility] HPV9 2017-11-25 Completed University of 00:00:00 [facility] MMR 2017-11-25 Completed University of 00:00:00 [facility] TDAP 2017-09-28 Completed University of 00:00:00 [facility] TDAP 2017-09-28 Completed University of 00:00:00 [facility] TDAP 2017-09-28 Completed University of 00:00:00 [facility] TDAP 2017-09-28 Completed University of 00:00:00 [facility] TDAP 2017-09-28 Completed University of 00:00:00 [facility] TDAP 2015-12-07 Completed University of 00:00:00 [facility] TDAP 2015-12-07 Completed University of 00:00:00 [facility] TDAP 2015-12-07 Completed University of 00:00:00 [facility] TDAP 2015-12-07 Completed University of 00:00:00 [facility] TDAP 2015-12-07 Completed University of 00:00:00 [facility] Influenza Virus 2015-11-16 Completed Universit y of Vaccine Quad IM 3+ 00:00:00 [facility] Influenza Virus 2015-11-16 Completed Universit y of Vaccine Quad IM 3+ 00:00:00 [facility] Influenza Virus 2015-11-16 Completed Universit y of Vaccine Quad IM 3+ 00:00:00 [facility] Influenza Virus 2015-11-16 Completed Universit y of Vaccine Quad IM 3+ 00:00:00 [facility] Influenza Virus 2015-11-16 Completed Universit y of Vaccine Quad IM 3+ 00:00:00 [facility] TDAP 2011-10-06 Completed University of 00:00:00 [facility] TDAP 2011-10-06 Completed University of 00:00:00 [facility] TDAP 2011-10-06 Completed University of 00:00:00 [facility] TDAP 2011-10-06 Completed University of 00:00:00 [facility] TDAP 2011-10-06 Completed University 00:00:00 [facility] Vital Signs Vital Name Observation Time Observation Value Comments Source BP Diastolic 2021-10-03 00:00:00 78 mm[Hg] [place] [facility] Height 2021-10-03 00:00:00 60 [in_i] [place] [facility] BMI (Body Mass 2021-10-03 00:00:00 47.7 kg/m2 [place] cover remover Index) [facility] BP Systolic 2021-10-03 00:00:00 109 mm[Hg] [place] [facility] Body Weight 2021-10-03 00:00:00 244.2 [lb_av] [place] [facility] BP Diastolic 2021-09-22 00:00:00 81 mm[Hg] [place] [facility] Height 2021-09-22 00:00:00 60 [in_i] [place] [facility] BMI (Body Mass 2021-09-22 00:00:00 47.3 kg/m2 [place] cover remover Index) [facility] BP Systolic 2021-09-22 00:00:00 111 mm[Hg] [place] [facility] Body Weight 2021-09-22 00:00:00 242 [lb_av] [place] [facility] Systolic blood 2021-07-07 14:47:00 135 mm[Hg] Univer sity of pressure [facility] Diastolic blood 2021-07-07 14:47:00 78 mm[Hg] Unive rsity of pressure [place] [facility] Heart rate 2021-07-07 14:47:00 84 /min Universi ty of [place] [facility] Body temperature 2021-07-07 14:47:00 36.22 Nighat [facility] ersity of [place] [facility] Respiratory rate 2021-07-07 14:47:00 18 /min Univ ersity of [place] [facility] Body height 2021-07-07 14:47:00 154.9 cm Universi ty [facility] [place] [facility] Body weight 2021-07-07 14:47:00 114.306 kg Universi ty [facility] [place] [facility] BMI 2021-07-07 14:47:00 47.61 kg/m2 Universi ty [facility] [place] [facility] Oxygen saturation in 2021-07-07 14:47:00 98 /min University of Arterial blood by [facility] Pulse oximetry Branch Systolic blood 2021-01-15 16:01:00 133 mm[Hg] Univer sity of pressure [place] [facility] Diastolic blood 2021-01-15 16:01:00 80 mm[Hg] Unive rsity of pressure [place] [facility] Heart rate 2021-01-15 16:01:00 103 /min Universi ty [facility] [place] [facility] Body temperature 2021-01-15 16:01:00 37.11 Nighat [facility] ersity of [place] [facility] Respiratory rate 2021-01-15 16:01:00 18 /min [facility] ersity of [place] [facility] Body height 2021-01-15 16:01:00 154.9 cm Universi ty [facility] [place] [facility] Body weight 2021-01-15 16:01:00 122.471 kg Universi ty [facility] [place] [facility] BMI 2021-01-15 16:01:00 51.02 kg/m2 Universi ty [facility] [place] [facility] Oxygen saturation in 2021-01-15 16:01:00 98 /min University of Arterial blood by [facility] Pulse oximetry Branch Procedures Procedure Date / Time Performed Performing Clinician Sourc e RAPID STREP SCREEN FOR 2021-07-07 14:52:00 [facility] NOTICE OF PRIVACY 2021-07-07 14:41:32 Doctor Unassigned, No Univ [facility] PRACTICES Name Medical Branch CONSENT/REFUSAL FOR 2021-07-07 14:41:11 Doctor Unassigned, No [facility]IS AND Name Medical Branch TREATMENT ASSIGNMENT OF BENEFITS 2021-01-15 16:11:51 Doctor Unassigned, No [facility] Plan of Care Planned Activity Planned Date Details Comments Source Diagnostic Test 2021-10-03 pap, IG + CT/NG + [place] [facility] Pending 00:00:00 HR HPV + reflex HPV [facility] (16+18) [code = Program pap, IG + CT/NG + HR HPV + reflex HPV (16+18)] Diagnostic Test 2021-10-03 bacterial vaginosis [place] [facility] Pending 00:00:00 + vaginitis panel, [facility] [place] vaginal [code = Program bacterial vaginosis + vaginitis panel, vaginal] Diagnostic Test 2021-10-03 HbA1c (hemoglobin [place] [facility] Pending 00:00:00 A1c), blood [code = [facility] HbA1c (hemoglobin Program A1c), blood] Diagnostic Test 2021-10-03 CBC w/ auto diff [place] [facility] Pending 00:00:00 [code = CBC w/ auto [facility] diff] Program Diagnostic Test 2021-10-03 CMP, serum or [facility] Pending 00:00:00 plasma [code = CMP, [facility] serum or plasma] Program Diagnostic Test 2021-10-03 HIV (1+2) [facility] Pending 00:00:00 antibodies, EIA, Health Outr each serum, reflex HIV-1 Program western blot (WB) [code = HIV (1+2) antibodies, EIA, serum, reflex HIV-1 western blot (WB)] Diagnostic Test 2021-10-03 hsv (1+2) igg Ab, [place] [facility] Pending 00:00:00 serum [code = hsv Health Out reach (1+2) igg Ab, Program serum] Diagnostic Test 2021-10-03 RPR (rapid plasma [place] [facility] Pending 00:00:00 reagin), serum Health Outrea ch [code = RPR (rapid Program plasma reagin), serum] Diagnostic Test 2021-10-03 hepatitis (A+B+C) [place] [facility] Pending 00:00:00 panel, serum [code [facility] [place] = hepatitis (A+B+C) Program panel, serum] Diagnostic Test 2021-10-03 lipid panel, blood [place]over [facility] Pending 00:00:00 [code = lipid Health Outreac h panel, blood] Program Diagnostic Test 2021-10-03 vitamin D, [facility] Pending 00:00:00 25-hydroxy, total, [facility] [place] serum [code = Program vitamin D, 25-hydroxy, total, serum] Encounters Start End Encounter Admission Attending Care Care Encounter Source Date/Time Date/Time Type Type Clinicians Facility Department ID 2022-05-23 2022-05-23 Outpatient R NUHA RESI [facility] B [id number] Univers 14:30:00 14:30:00 NUHA REIS [facility] 2021-12-07 2021-12-07 Outpatient AMBREEN_FAR [facility] [id number] [place] 00:00:00 00:00:00 HANA [id number] [facility] 2021-11-02 2021-11-02 Outpatient AMBREEN_FAR [facility] 120 [id number] [place] 00:00:00 00:00:00 HANA [id number] [facility] 2021-10-10 2021-10-10 Outpatient AM[facility]EN_[facility] 120 [id number] [place] 00:00:00 00:00:00 HANA [id number] [facility] 2021-10-03 2021-10-03 Outpatient AMBREEN_FAR [facility] 120 [id number] [place] 00:00:00 00:00:00 HANA [id number] [facility] 2021-10-03 2021-10-03 [place] [facility] [place] - [id number] [place] 00:00:00 00:00:00 Ena Stewart MD: [facility] Epi scop [address] [facility] 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 [phone] 2021-09-21 2021-09-21 Outpatient AMBREEN_FAR [facility] 120 [id number] [place] 00:00:00 00:00:00 HANA [facility] 2021-09-19 2021-09-19 Outpatient AMBREEN_FAR [facility] [id number] [place] 00:00:00 00:00:00 HANA [facility] 2021-07-07 2021-07-07 Emergency X TALA NYTHAIS ERT [id number] Univers 09:50:00 11:12:[address] [facility] 2021-07-07 2021-07-07 [facility] [id number] Univers 09:50:00 11:12:00 Gregoria JOHNSON [id number] ity of [place] [id number] [facility] [phone] [facility] 084 Branch 2021-07-07 2021-07-07 Orders Doctor GARIBAY [id number] 00:00:00 00:00:00 Only Unassigned, ROBIN [id number] ity of [place] [facility] [id number] [facility] [place] [phone] [facility] 009 Branch 2021-03-28 2021-03-28 Telephone Tala [facility] [id number] Univers 00:00:00 00:00:00 Hermila Benito MIDWIFE [id number] it y of [facility] [id number] Kayden as MATERNAL [phone] [facility] ical & CHILD [address] [place] [address] 2021-01-15 2021-01-15 Emergency [facility] ERT [id number] Univers 10:02:00 10:22:00 GREGORIA rick [facility] 2021-01-15 2021-01-15 Emergency [facility] [id number] Univers 10:02:00 10:22:00 Gregoria [facility]NSON [id number] [facility] [id number] [facility] [phone] [address] 2020-06-24 2020-06-24 [facility] [id number] Univers 09:00:00 09:00:00 HERMILA rick [facility] 2020-06-21 2020-06-21 Telephone [facility] [id number] Univers 00:00:00 00:00:00 Jil Davila MIDWIFE [id number] ity [facility] [id number] Kayden as MATERNAL [phone] [facility] & CHILD [address] [place] [address] Results This patient has no known results.
[2022-07-25] MEDS ORDERED: IBUPROFEN 200 MG TAB PO ONE (19:55)
[2022-07-25] MEDS ORDERED: IBUPROFEN 400 MG TAB ONE (19:55)
[2022-07-25] MEDS ORDERED: NA CHLORIDE 0.9% 1,000 ML ONE (20:15)
[2022-07-25 20:23] LABS: Absolute Lymphocytes (CBC) 1.4 K/uL (0.7-4.9); Hematocrit 40.7 % (36.0-45.0); Lymphocytes % 10.1 % (15.3-44.8); MCV 83.5 fL (80-100); MPV 7.9 fL (7.6-11.3); RBC Red Blood Cell Count 4.88 M/uL (3.86-4.86)
[2022-07-25 20:26] LABS: Specific Gravity 1.005 (1.005-1.030); Urine Bilirubin NEGATIVE (Negative); Urine Blood Negative (Negative); Urine Clarity Clear (Clear); Urine Color Colorless (Yellow); Urine Glucose NEGATIVE (Negative); Urine Protein NEGATIVE (Negative); Urine Urobilinogen Normal (Normal)
[2022-07-25 20:40] LABS: Albumin 3.7 g/dL (3.4-5.0); Bilirubin Total 0.6 mg/dL (0.2-1.0); Potassium 3.2 mEq/L (3.5-5.1); Protein, Total 8.1 g/dL (6.4-8.2)
--- NOTE | 2022-07-25 21:06 | RAD REPORT ---
EXAM DESCRIPTION: Surjit Pa And Lat (2 Views)07/25/2022 8:28 pm CLINICAL HISTORY: Cough COMPARISON: None FINDINGS: Area of subsegmental atelectasis right upper lobe. The remainder of the lungs appear clear of acute infiltrate. The heart is normal size
--- NOTE | 2022-07-25 21:08 | ER ---
Nurse's Notes [facility] Name: Henna Reina Age: 27 yrs Sex: Female : 1995 Arrival Date: 07/25/2022 Time: 19:30 Bed 2 Private MD: Diagnosis: Streptococcal tonsillitis Presentation: 07/25 19:37 Ebola Screen: No symptoms or risks identified at this time. Initial Sepsis Screen: Does kd3 the patient meet any 2 criteria? HR > 90 bpm. Does the patient have a suspected source of infection? No. Patient's initial sepsis screen is negative. Risk Assessment: Do you want to hurt yourself or someone else? Patient reports no desire to harm self or others. Onset of symptoms was July 25, 2022. 19:37 Method Of Arrival: Ambulatory kd3 19:37 Acuity: INGRID 3 kd3 19:39 Chief complaint: Patient states: I started off feeling bad with a sore throat and kd3 yesterday i started aching and had the chills. I had a fever of 110.4 3 hours ago and i took Tylenol at that time. I have a headache and my back hurts. Coronavirus screen: Vaccine status: Patient reports being unvaccinated. Triage Assessment: 19:37 Neuro: Level of Consciousness is awake, alert, obeys commands, Oriented to person, kd3 place, time, situation. Respiratory: Airway is patent Trachea midline Respiratory effort is even, unlabored, Respiratory pattern is regular, symmetrical. 19:41 Headache History: The patient has had previous headaches. General: Appears kd3 uncomfortable, Behavior is calm, cooperative. Pain: Pain currently is 8 out of 10 on a pain scale. Pain began gradually, Also complains of nausea. 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 - Social history:: Smoking status: unknown. Screenin:59 [facility] ED Fall Risk Assessment (Adult) History of falling in the last 3 months, rv including since admission No falls in past 3 months (0 pts). Abuse screen: Denies threats or abuse. Denies injuries from another. Nutritional screening: No deficits noted. Tuberculosis screening: No symptoms or risk factors identified. Assessment: 20:57 General: Appears in no apparent distress. comfortable, Behavior is calm, cooperative. rv Pain: Complains of pain in back and head. Neuro: Level of Consciousness is awake, alert, obeys commands, Oriented to person, place, time, situation. Cardiovascular: Capillary refill < 3 seconds. Respiratory: Airway is patent Respiratory effort is even, unlabored. GI: Abdomen is non-distended. Vital Signs: 19:37 Pulse 123; Resp 19; Temp 100; Pulse Ox 99% on R/A; Weight 122.02 kg; Height 5 ft. 1 in. kd3 ; 19:39 BP 120 / 75; kd3 20:58 BP 133 / 70; Pulse 110; Resp 17; Temp 99(O); Pulse Ox 97% ; rv 21:38 Pulse 102; rv 19:37 Body Mass Index 50.83 (122.02 kg, 154.94 cm) kd3 ED Course: 19:33 Patient arrived in ED. ja2 19:37 Arm band placed on right wrist. kd3 19:38 Triage completed. kd3 19:46 Fidencio Majano PA is PHCP. cp 19:46 Yunior Titus MD is Attending Physician. cp 20:13 CBC with Diff Sent. kd3 20:13 CMP Sent. kd3 20:13 Lipase Sent. kd3 20:13 Test, Urine Sent. kd3 20:13 Urinalysis w/ reflexes Sent. kd3 20:15 No provider procedures requiring assistance completed. Inserted saline lock: 20 gauge rv in right antecubital area, using aseptic technique. Blood collected. 20:30 XRAY Chest Pa And Lat (2 Views) In Process Unspecified. EDMS 20:48 Cam West, RORY is Primary Nurse. rv 20:59 Patient has correct armband on for positive identification. Placed in gown. Bed in low rv position. Call light in reach. Client placed on continuous cardiac and pulse oximetry monitoring. NIBP monitoring applied. 21:38 IV discontinued, intact, bleeding controlled, No redness/swelling at site. Pressure rv dressing applied. Administered Medications: 19:53 Drug: Ibuprofen PO 600 mg Route: PO; kd3 20:10 Drug: NS 0.9% IV 1000 ml Route: IV; Rate: 1 bolus; Site: right antecubital; kd3 21:37 Follow up: IV Status: Completed infusion; IV Intake: 1000ml rv 21:15 Drug: Decadron - Dexamethasone IVP 10 mg Route: IVP; Site: right antecubital; mb9 21:37 Follow up: Response: No adverse reaction rv 21:20 Drug: Rocephin IV 1 grams Route: IV; Rate: calculated rate; Site: right antecubital; mb9 21:37 Follow up: IV Status: Completed infusion; IV Intake: 100ml rv 21:36 Drug: AZITHromycin PO 500 mg Route: PO; rv 21:37 Follow up: Response: Medication administered at discharge. rv Medication: 20:59 VIS not applicable for this client. rv Intake: 21:37 IV: 1000ml; Total: 1000ml. rv 21:37 IV: 100ml; Total: 1100ml. rv Outcome: 21:08 Discharge ordered by MD. cp 21:37 Discharged to home ambulatory, with family. rv 21:37 Condition: good 21:37 Condition: good 21:37 Discharge instructions given to patient, family, Instructed on discharge instructions, follow up and referral plans. medication usage, Demonstrated understanding of instructions, follow-up care, medications, Prescriptions given X 3. 21:38 Patient left the ED. rv Signatures: Dispatcher [employer] EDMS Fidencio Majano PA PA cp Vicente, Ronaldo RN RN rv Elsy Oliveira Kyli RN RN kd3 Lorraine España RN RN mb9
--- NOTE | 2022-07-25 21:08 | EDPHYS ---
Physician Documentation [facility] Name: Henna Reina Age: 27 yrs Sex: Female : 1995 Arrival Date: 07/25/2022 Time: 19:30 Bed 2 Private MD: ED Physician Yunior Titus HPI: 07/25 20:00 This 27 yrs old Female presents to ER via Ambulatory with complaints of Fever, cp Headache, Nausea, Weakness, Dizziness. 20:00 The patient reports fever, with an emergency department temperature of 100 degrees cp Fahrenheit. 20:00 Onset: The symptoms/episode began/occurred gradually, and became worse yesterday. cp Associated signs and symptoms: Pertinent positives: headache, nausea, dizziness, weakness. Severity of symptoms: in the emergency department the symptoms are unchanged despite home interventions. 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 - Social history:: Smoking status: unknown. ROS: 20:05 Constitutional: Positive for body aches, Negative for fever, poor PO intake. cp 20:05 Eyes: Negative for injury, pain, redness, and discharge. cp 20:05 ENT: Positive for sore throat, Negative for drainage from ear(s), ear pain, difficulty swallowing, difficulty handling secretions. 20:05 Respiratory: Negative for cough, shortness of breath, wheezing. 20:05 Abdomen/GI: Positive for nausea, Negative for abdominal pain, vomiting, diarrhea, constipation. 20:05 Skin: Negative for rash. 20:05 Neuro: Positive for dizziness, headache, weakness, Negative for altered mental status. 20:05 All other systems are negative. Exam: 20:10 Constitutional: The patient appears in no acute distress, alert, awake, non-toxic, well cp developed, well nourished, obese. 20:10 Head/Face: Normocephalic, atraumatic. cp 20:10 Eyes: Periorbital structures: appear normal, Conjunctiva: normal, no exudate, no injection, Sclera: no appreciated abnormality, Lids and lashes: appear normal, bilaterally. 20:10 ENT: External ear(s): are unremarkable, Ear canal(s): are normal, clear, TM's: dullness, bilaterally, Nose: is normal, Mouth: Lips: moist, Oral mucosa: moist, Posterior pharynx: Airway: no evidence of obstruction, patent, Tonsils: bilaterally enlarged, with erythema, with exudate, Uvula: midline, erythema, that is moderate, Voice: is normal. 20:10 Neck: ROM/movement: is normal, is supple, no meningismus, no nuchal rigidity. 20:10 Chest/axilla: Inspection: normal. 20:10 Cardiovascular: Rate: tachycardic, Rhythm: regular. 20:10 Respiratory: the patient does not display signs of respiratory distress, Respirations: normal, no use of accessory muscles, no retractions, labored breathing, is not present, Breath sounds: are clear throughout, no decreased breath sounds, no stridor, no wheezing. 20:10 Abdomen/GI: Inspection: abdomen appears normal, Palpation: abdomen is soft and non-tender, in all quadrants. 20:10 Back: CVA tenderness, is absent. 20:10 Skin: no rash present. 20:10 Neuro: Orientation: to person, place \T\ time. Mentation: is normal, Motor: moves all fours, strength is normal, Sensation: is normal. Vital Signs: 19:37 Pulse 123; Resp 19; Temp 100; Pulse Ox 99% on R/A; Weight 122.02 kg; Height 5 ft. 1 in. kd3 ; 19:39 BP 120 / 75; kd3 20:58 BP 133 / 70; Pulse 110; Resp 17; Temp 99(O); Pulse Ox 97% ; rv 21:38 Pulse 102; rv 19:37 Body Mass Index 50.83 (122.02 kg, 154.94 cm) kd3 MDM: 19:46 Patient medically screened. cp 21:08 Data reviewed: vital signs, nurses notes, lab test result(s), radiologic studies, plain cp films. 21:08 Consideration of Admission/Observation Escalation of care including cp admission/observation considered. I considered the following discharge prescriptions or medication management in the emergency department Medications were administered in the Emergency Department. See MAR. Counseling: I had a detailed discussion with the patient and/or guardian regarding: the historical points, exam findings, and any diagnostic results supporting the discharge/admit diagnosis, lab results, radiology results, to return to the emergency department if symptoms worsen or persist or if there are any questions or concerns that arise at home. Response to treatment: the patient's symptoms have markedly improved after treatment, and as a result, I will discharge patient. 07/25 19:43 Order name: COVID-19 SARS RT PCR; Complete Time: 21:05 kd3 07/25 19:43 Order name: Strep; Complete Time: 20:39 kd3 07/25 19:43 Order name: Flu; Complete Time: 20:39 kd3 07/25 19:55 Order name: CBC with Diff; Complete Time: 20:39 cp 07/25 19:55 Order name: CMP; Complete Time: 20:43 cp 07/25 20:43 Interpretation: Normal except: NA 134; K 3.2; GLOB 4.4; A/G 0.8. cp 07/25 19:55 Order name: Lipase; Complete Time: 20:43 cp 07/25 19:55 Order name: Test, Urine; Complete Time: 20:39 cp 07/25 19:55 Order name: Urinalysis w/ reflexes; Complete Time: 20:39 cp 07/25 19:55 Order name: XRAY Chest Pa And Lat (2 Views); Complete Time: 21:21 cp 07/25 19:55 Order name: IV Saline Lock; Complete Time: 20:10 cp 07/25 19:55 Order name: Labs collected and sent; Complete Time: 20:10 cp Administered Medications: 19:53 Drug: Ibuprofen PO 600 mg Route: PO; kd3 20:10 Drug: NS 0.9% IV 1000 ml Route: IV; Rate: 1 bolus; Site: right antecubital; kd3 21:37 Follow up: IV Status: Completed infusion; IV Intake: 1000ml rv 21:15 Drug: Decadron - Dexamethasone IVP 10 mg Route: IVP; Site: right antecubital; mb9 21:37 Follow up: Response: No adverse reaction rv 21:20 Drug: Rocephin IV 1 grams Route: IV; Rate: calculated rate; Site: right antecubital; mb9 21:37 Follow up: IV Status: Completed infusion; IV Intake: 100ml rv 21:36 Drug: AZITHromycin PO 500 mg Route: PO; rv 21:37 Follow up: Response: Medication administered at discharge. rv Disposition Summary: 07/25/22 21:08 Discharge Ordered Location: Home cp Problem: new cp Symptoms: have improved cp Condition: Stable cp Diagnosis - Streptococcal tonsillitis cp Followup: cp - With: Private Physician - When: 2 - 3 days - Reason: Recheck today's complaints Discharge Instructions: - Discharge Summary Sheet cp - Strep Throat, Adult cp - Tonsillitis cp Forms: - Medication Reconciliation Form cp - Thank You Letter cp - Antibiotic Education cp - Prescription Opioid Use cp - Work release form mb9 Prescriptions: - Augmentin 875-125 mg Oral Tablet - take 1 tablet by ORAL route every 12 hours for 10 days; 20 tablet; Refills: 0, cp Product Selection Permitted - Ibuprofen 800 mg Oral Tablet - take 1 tablet by ORAL route every 8 hours As needed take with food; 30 tablet; cp Refills: 0, Product Selection Permitted - Zithromax Z-Guillaume 250 mg Oral Tablet - take 1 tablet by ORAL route as directed for 5 days Day 1 - take two (2) tablets cp one time. Day 2, 3, 4 , 5 take one (1) tablet once daily.; 6 tablet; Refills: 0, Product Selection Permitted Signatures: Dispatcher [employer] EDMS Fidencio Majano PA PA cp Cam West, RN RN Maria Teresa Bailey RN RN kd3 Lorraine España RN RN mb9 Corrections: (The following items were deleted from the chart) 21:24 21:24 Other pneumonia, unspecified organism cp cp
[2022-07-25] MEDS ORDERED: dexAMETHasone 10 MG/ML VIAL ONE (21:23)
[2022-07-25] MEDS ORDERED: CEFTRIAXONE 1000 MG/VIAL ONE (21:23)
[2022-07-25] MEDS ORDERED: AZITHROMYCIN 250 MG TAB ONE (21:39)
[2022-07-25 22:19] VITALS: BP 133/70; TEMP 99; O2SAT 97
== END 2022-07-25 21:38 | disposition home or self-care (01) ==
LOC: ER 19:30
DX: J03.00 Acute streptococcal tonsillitis, unspecified (principal); Z20.822 Contact with and (suspected) exposure to COVID-19
CPT/HCPCS: 36415; 71046; 80053; 81003; 81025; 83690; 85025; 87081; 87635; 87804; 96361; 96365; 96375; 99284; J0696; J1100; J7030

== ENCOUNTER 2022-11-15 08:13 | Emergency (ER) | payer SELFPAY ==
--- OUTSIDE RECORDS SUMMARY | 2022-11-15 08:16 | XMS REPORT | Continuity of Care Document ---
:1995 Author Organization [facility] t Address [address] [place] [address] Care Team Providers Name Role Phone PCP, PATIENT DOES NOT HAVE A Primary Care Physician Unavaila NUHA Peacock Attending Clinician Unavailable NUHA REIS Attending Clinician Unavailable HASEEB Attending Clinician Unavailable GREGORIA EDGAR Attending Clinician Unavailable Gregoria Edgar DO Attending Clinician Doctor Unassigned, [place] Attending Clinician Unavailable Hermila Oleary Attending Clinician [...] vers insertion insertion 03-26 ity of 00:00: [place] [address] Medical Branch Encounter Encounter Disease Active 2017-02 Uni vers for for 03-05 ity of contracept [place]pt [place] ол[place] олег 00 Medical management management Br anch , , unspecifie unspecifie d type d type BMI BMI Disease Active 2017-02 Univers 40.0-44.9, 40.0-44.9, -08 it y of adult adult 00:00: [address] Branch Screening Screening Disease Active 2017-02 Uni vers examinatio examinatio 0-18 it y of n for STD n for STD 00:00: [place] (sexually (sexually 00 Medi jaskaran transmitte transmitte Br anch d disease) d disease) Morbid Morbid Disease Active Univers obesity obesity 1-22 ity of 00:00: [place] 00 [facility] Branch Essential Essential Disease Active Uni vers hypertensi hypertensi 1-22 it y of on, benign on, benign [place] [facility] Allergies, Adverse Reactions, Alerts Allergy Allergy Status Severity Reaction(s) Onset Inactive Treating Comm ents Source Name Type Date Date Clinician NO KNOWN Drug Active Univers ALLERGIE Class ity of S [facility] Social History Social Habit Start Date Stop Date Quantity Comments Source Exposure to Not sure [facility] SARS-CoV-2 [facility] (event) [place] Alcohol intake 2021-07-07 2021-07-07 0 /d University of 00:00:00 00:00:00 [facility] Tobacco use and 2018-01-03 2018-01-03 Never used Universit y of exposure 00:00:00 00:00:00 [facility] Tobacco Comment 2018-01-03 2018-01-03 1-2 cig every Univer sity of 00:00:00 00:00:00 other day [facility] History of 2013-04-26 2017-02-26 Cigarette Smoker Universi ty of tobacco use 00:00:00 00:00:00 [facility] Sex Assigned At [birth year] Universit y of 00:00:00 00:00:00 [facility] Smoking Status Start Date Stop Date Source [facility] Current some day smoker 2018-01-03 00:00:00 [facility] Medications Ordered Filled Start Stop Current Ordering Indication Dosage Frequency Signature Comments Components Source Medication Medication Date Date Medication? Clinician (SIG) Name Name clindamycin 2020-02- No [id number] 300mg Take 1 Univers 300 mg 1-20 - capsule by ity of capsule 00:00: 05:59 mouth 4 [place] 00 :00 (four) Medical times [place] daily for 7 days. traMADOL 2017-02 Yes [...] BY MOUTH h ONCE A Program DAY. 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) [facility] BP Systolic 2021-10-03 00:00:00 109 mm[Hg] [place] [facility] Body Weight 2021-10-03 00:00:00 244.2 [lb_av] [place] [facility] BP Diastolic 2021-09-22 00:00:00 81 mm[Hg] [place] [facility] Height 2021-09-22 00:00:00 60 [in_i] [place] [facility] BMI (Body Mass 2021-09-22 00:00:00 47.3 kg/m2 [place] [employer] services instructor Index) [facility] BP Systolic 2021-09-22 00:00:00 111 mm[Hg] [place] [facility] Body Weight 2021-09-22 00:00:00 242 [lb_av] [place] [facility] Systolic blood 2021-07-07 14:47:00 135 mm[Hg] Univer sity of [facility] Diastolic blood 2021-07-07 14:47:00 78 mm[Hg] [facility] Heart rate 2021-07-07 14:47:00 84 /min General acute hospital Body temperature 2021-07-07 14:47:00 36.22 Nighat [facility] Respiratory rate 2021-07-07 14:47:00 18 /min [facility] Body height 2021-07-07 14:47:00 154.9 cm General acute hospital Body weight 2021-07-07 14:47:00 114.306 kg General acute hospital BMI 2021-07-07 14:47:00 47.61 kg/m2 General acute hospital Oxygen saturation in 2021-07-07 14:47:00 98 /min [facility] Arterial blood by [facility] Systolic blood 2021-01-15 16:01:00 133 mm[Hg] Univer sity of [facility] Diastolic blood 2021-01-15 16:01:00 80 mm[Hg] Unive rsity of [facility] Heart rate 2021-01-15 16:01:00 103 /min General acute hospital Body temperature 2021-01-15 16:01:00 37.11 Nighat [facility] Respiratory rate 2021-01-15 16:01:00 18 /min [facility] Body height 2021-01-15 16:01:00 154.9 cm General acute hospital Body weight 2021-01-15 16:01:00 122.471 kg General acute hospital BMI 2021-01-15 16:01:00 51.02 kg/m2 General acute hospital Oxygen saturation in 2021-01-15 16:01:00 98 /min [facility] blood by [facility] Procedures Procedure Date / Time Performed Performing Clinician Sour e RAPID STREP SCREEN FOR 2021-07-07 14:52:00 Gregoria Edgar [facility] Medical [place] NOTICE OF PRIVACY 2021-07-07 14:41:32 Doctor Unassigned, No [facility] CONSENT/REFUSAL FOR 2021-07-07 14:41:11 Doctor Unassigned, No [facility] DIAGNOSIS AND [facility] [place] TREATMENT ASSIGNMENT OF BENEFITS 2021-01-15 16:11:51 Doctor Unassigned, No [facility] Plan of Care Planned Activity Planned Date Details Comments Source Diagnostic Test 2021-10-03 pap, IG + CT/NG + [place] [facility] Pending 00:00:00 HR HPV + reflex HPV [facility] (16+18) [code = Program pap, IG + CT/NG + HR HPV + reflex HPV (16+18)] Diagnostic Test 2021-10-03 bacterial vaginosis [place] [facility] Pending 00:00:00 + vaginitis panel, [facility] vaginal [code = Program bacterial vaginosis + vaginitis panel, vaginal] Diagnostic Test 2021-10-03 HbA1c (hemoglobin [place] [facility] Pending 00:00:00 A1c), blood [code = [facility] HbA1c (hemoglobin Program A1c), blood] Diagnostic Test 2021-10-03 CBC w/ auto diff [place] [facility] Pending 00:00:00 [code = CBC w/ auto [facility] diff] Program Diagnostic Test 2021-10-03 CMP, serum or [place] [facility] Pending 00:00:00 plasma [code = CMP, [facility] serum or plasma] Program Diagnostic Test 2021-10-03 HIV (1+2) [place] [facility] Pending 00:00:00 antibodies, EIA, Health Outr each serum, reflex HIV-1 Program western blot (WB) [code = HIV (1+2) antibodies, EIA, serum, reflex HIV-1 western blot (WB)] Diagnostic Test 2021-10-03 hsv (1+2) igg Ab, [place] [facility] Pending 00:00:00 serum [code = hsv Health Out reach (1+2) igg Ab, Program serum] Diagnostic Test 2021-10-03 RPR (rapid plasma [place] [facility] Pending 00:00:00 reagin), serum Health Outrea ch [code = RPR (rapid Program plasma reagin), serum] Diagnostic Test 2021-10-03 hepatitis (A+B+C) [place] [facility] Pending 00:00:00 panel, serum [code [facility] = hepatitis (A+B+C) Program panel, serum] Diagnostic Test 2021-10-03 lipid panel, blood [place] [facility] Pending 00:00:00 [code = lipid Health Outreac h panel, blood] Program Diagnostic Test 2021-10-03 vitamin D, [place] [facility] Pending 00:00:00 25-hydroxy, total, [facility] serum [code = Program vitamin D, 25-hydroxy, total, serum] Encounters Start End Encounter Admission Attending Care Care Encounter Source Date/Time Date/Time Type Type Clinicians Facility Department ID 2022-10-25 2022-10-25 Outpatient MARGO ARAGON [id number] [place] 13:33:49 13:33:49 0830 F Will 2022-05-23 2022-05-23 Outpatient R NUHA REIS [facility] B [id number] [facility] 14:30:00 14:30:00 NUHA REIS [facility] 2021-12-07 2021-12-07 Outpatient MAGALYS_ROSIBEL CABEAN [place] [id number] [place] 00:00:00 00:00:00 [place] [id number] [facility] 2021-11-02 2021-11-02 Outpatient AMBREEN_FAR MEHOP MEHOP [id number] [place] 00:00:00 00:00:00 HANA [id number] [facility] 2021-10-10 2021-10-10 Outpatient AMBREEN_FAR MEHOP MEHOP [id number] [place] 00:00:00 00:00:00 HANA [id number] [facility] 2021-10-03 2021-10-03 Outpatient AMBREEN_FAR MEHOP MEHOP 120 [id number] [place] 00:00:00 00:00:00 HANA [id number] [facility] 2021-10-03 2021-10-03 [facility] [place] - [id number] [place] 00:00:00 00:00:00 Ena Stewart MD: [facility] [address] [place] [facility] [address], [place] [address] , Ph. [phone] 2021-09-28 2021-09-28 Outpatient AMBREEN_FAR MEHOP MEHOP 120 [id number] [place] 00:00:00 00:00:00 HANA [id number] [facility] 2021-09-22 2021-09-22 Outpatient AMBREEN_FAR MEHOP MEHOP 120 [id number] [place] 00:00:00 00:00:00 HANA [facility] 2021-09-22 2021-09-22 [facility] [place] - [id number] [place] 00:00:00 00:00:00 Ena Stewart MD: [facility] [address] Osorio [facility] [address], [place], [place] [address] , Ph. [phone] 2021-09-21 2021-09-21 Outpatient AMBREEN_FAR MEHOP MEHOP 120 [id number] [place] 00:00:00 00:00:00 HANA [facility] 2021-09-19 2021-09-19 Outpatient AMBREEN_FAR CAHOP [place] 120 [id number] [place] 00:00:00 00:00:00 [place] [id number] [facility] 2021-07-07 2021-07-07 Emergency X TALA [facility] ERT [id number] Univers 09:50:00 11:12:00 GREGORIA rick [facility] 2021-07-07 2021-07-07 Emergency [facility] [id number] Univers 09:50:00 11:12:00 Gregoria JOHNSON [id number] ity of [place] [id number] [facility] [phone] [address] 2021-07-07 2021-07-07 Orders Doctor [place] [id number] Univers 00:00:00 00:00:00 Only Unassigned, ROBIN [id number] [facility] [id number] [place] as [phone] [address] 2021-03-28 2021-03-28 Telephone 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 2021-01-15 2021-01-15 Emergency [facility] [id number] Univers 10:02:00 10:22:00 Gregoria JOHNSON [id number] ity of [place] [id number] [facility] [phone] [address] 2021-01-15 2021-01-15 Emergency 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 AGE UNITS RANGE 3 WEEKS MIU/ML 6-71 10 WEEKS MIU/ML 46,509-186,9774 WEEKS MIU/ML 10 -750 12 WEEKS MIU/ML 27,832-2 10,6125 WEEKS MIU/ML 217-7,13 8 14 WEEKS MIU/ML 13,950-62,5306 WEEKS MIU/ML 158-31,795 15 W EEKS MIU/ML 12,039-70,9717 WEEKS MIU/ML 3,697-163,563 1 6 WEEKS MIU/ML 9,040-56,4518 W EEKS MIU/ML 32,065-149,571 17 WEEKS MIU/ML 8,175-55,8689 W EEKS MIU/ML 63,803-151,410 18 WEEKS MIU/ML 8,099-58,176MAL ES and NON- FEMALES . . . . . . . . MIU/ML [id number] NITA FEMALES . . . . . . . . . . . . MIU/ML <=7 UNLESS OTHERWISE INDIC ATED, ALL TEST[facility], [place] [address] 4 LAND EXAMINER: SYEDA MILLIGAN M.D. [place] NUMBER [id number] CAP ACCREDITATION N O. [phone]
[2022-11-15 08:47] LABS: Absolute Lymphocytes (CBC) 1.3 K/uL (0.7-4.9); Hematocrit 38.8 % (36.0-45.0); Lymphocytes % 9.1 % (15.3-44.8); MCV 83.9 fL (80-100); MPV 7.8 fL (7.6-11.3); Platelets 297 thou/uL (152-406); RBC Red Blood Cell Count 4.62 M/uL (3.86-4.86)
[2022-11-15] MEDS ORDERED: METOCLOPRAMIDE 10 MG/2mL INJ ONE (08:47)
[2022-11-15] MEDS ORDERED: MAGNESIUM SULFATE 1 gm IVPB 1 GM/100 ML BAG IV ONE (08:48)
[2022-11-15] MEDS ORDERED: KETOROLAC 30 MG/ML INJ ONE (08:48)
[2022-11-15] MEDS ORDERED: NA CHLORIDE 0.9% 1,000 ML ONE (08:48)
[2022-11-15 09:03] LABS: Albumin 3.6 g/dL (3.4-5.0); Bilirubin Total 0.5 mg/dL (0.2-1.0); Potassium 3.4 mEq/L (3.5-5.1); Protein, Total 7.5 g/dL (6.4-8.2)
--- NOTE | 2022-11-15 09:26 | EDPHYS ---
Physician Documentation [facility] Name: Henna Reina Age: 27 yrs Sex: Female : 1995 Arrival Date: 11/15/2022 Time: 08:13 Bed 14 Private MD: ED Physician Harman Otero HPI: 11/15 08:29 This 27 yrs old Female presents to ER via Ambulatory with complaints of Fever, sb4 Flu Symptoms. 08:30 The patient presents with sore throat. Onset: The symptoms/episode began/occurred last sb4 night. 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 Associated signs and symptoms: Pertinent positives: chills, fever, flu-like symptoms, headache, nausea, Sore throat Pertinent negatives chest pain, diarrhea, shortness of breath. The patient has not recently seen a physician. Historical: - Allergies: 08:24 No Known Allergies; ll1 - PMHx: 08:24 None; ll1 - PSHx: 08:24 None; ll1 - Immunization history:: Adult Immunizations up to date. - Social history:: Smoking status: Patient denies any tobacco usage or history of. ROS: 08:30 Cardiovascular: Negative for chest pain, palpitations, and edema, Respiratory: Negative sb4 for shortness of breath, cough, wheezing, and pleuritic chest pain, 08:30 Constitutional: Positive for body aches, chills, fever, 08:30 ENT: Positive for sore throat, 08:30 Abdomen/GI: Positive for nausea and vomiting, 08:30 Neuro: Positive for dizziness, headache, 08:30 Endocrine: Positive for 08:30 All other systems are negative, Exam: 08:30 Constitutional: This is a well developed, well nourished patient who is awake, alert, sb4 and in no acute distress. Head/Face: Normocephalic, atraumatic. Eyes: Extra-ocular motions intact. Periorbital areas with no swelling, redness, or edema. Respiratory: Lungs have equal breath sounds bilaterally, clear to auscultation and percussion. No rales, rhonchi or wheezes noted. No increased work of breathing, no retractions or nasal flaring. Abdomen/GI: Soft, non-tender, no distension. Skin: Warm, dry with normal turgor. Normal color with no rashes, no lesions, and no evidence of cellulitis. MS/ Extremity: Pulses equal, no cyanosis. Neurovascular intact. Full, normal range of motion. Neuro: Awake and alert, GCS 15, oriented to person, place, time, and situation. Motor strength 5/5 in all extremities. Sensory grossly intact. 08:30 ENT: Mouth: Oral mucosa: dry, Posterior pharynx: Airway: normal, no evidence of obstruction, Tonsils: bilaterally enlarged, with erythema, Uvula: normal, midline, swelling, is not appreciated, erythema, that is mild, exudate, is not appreciated, 08:30 Cardiovascular: Rate: tachycardic, Rhythm: regular, Vital Signs: 08:24 BP 113 / 78; Pulse 112; Resp 18; Temp 98.2; Pulse Ox 100% ; Height 5 ft. 1 in. ; Pain ll1 6/10; 09:27 BP 120 / 77; Pulse 101; Resp 16 S; Pulse Ox 100% on R/A; kc6 08:24 Pain Scale: Adult ll1 MDM: 08:19 Patient medically screened. sb4 08:30 Differential diagnosis: group A strep tonsillitis, influenza, pharyngitis, tonsillitis, sb4 upper respiratory infection, viral syndrome. 09:25 Data reviewed: vital signs, nurses notes, lab test result(s), and as a result, I will sb4 discharge patient. Counseling: I had a detailed discussion with the patient and/or guardian regarding the historical points, exam findings, and any diagnostic results supporting the discharge/admit diagnosis, lab results, to return to the emergency department if symptoms worsen or persist or if there are any questions or concerns that arise at home. 11/15 08:29 Order name: CBC with Diff; Complete Time: 09:40 sb4 11/15 08:29 Order name: CMP; Complete Time: 09:06 sb4 11/15 08:29 Order name: Lipase; Complete Time: 09:06 sb4 11/15 08:29 Order name: Flu; Complete Time: 09:19 sb4 11/15 08:29 Order name: Strep; Complete Time: 09:14 [facility] 11/15 08:36 Order name: SARS-COV-2 RT PCR; Complete Time: 09:22 EDMS 11/15 08:50 Order name: CBC Smear Scan; Complete Time: 09:40 EDMS 11/15 08:29 Order name: IV Saline Lock; Complete Time: 08:41 sb4 11/15 08:29 Order name: Labs collected and sent; Complete Time: 08:41 sb4 Administered Medications: 08:43 Drug: NS 0.9% IV 1000 ml IV at 1 bolus Per protocol; 1000 mL bolus Route: IV; Rate: 1 kc6 bolus; Site: right antecubital; 10:07 Follow up: Response: No adverse reaction; IV Status: Completed infusion; IV Intake: kc6 1000ml 08:43 Drug: Magnesium Sulfate IVPB 1 grams IVPB once over 1 hrs Route: IVPB; Infused Over: 1 kc6 hrs; Site: right antecubital; 10:07 Follow up: Response: No adverse reaction; IV Status: Completed infusion; IV Intake: kc6 100ml 08:43 Drug: metoCLOPramide IVP 10 mg IVP once; over 1 to 2 minutes Route: IVP; Site: right kc6 antecubital; 09:26 Follow up: Response: No adverse reaction kc6 08:43 Drug: Ketorolac IVP 30 mg IVP once Route: IVP; Site: right antecubital; kc6 09:26 Follow up: Response: No adverse reaction; Pain is decreased kc6 Disposition Summary: 11/15/22 09:26 Discharge Ordered Notes: Location: Home sb4 Problem: new sb4 Symptoms: have improved sb4 Condition: Stable sb4 Diagnosis - Streptococcal pharyngitis sb4 Followup: sb4 - With: Private Physician - When: As needed - Reason: Recheck today's complaints, Continuance of care, Re-evaluation by your physician Discharge Instructions: - Discharge Summary Sheet sb4 - Strep Throat, Adult, [id number] sb4 Forms: - Work release form sb4 - Medication Reconciliation Form sb4 - Thank You Letter sb4 - Antibiotic Education sb4 - Prescription Opioid Use sb4 - Patient Portal Instructions sb4 - Leadership Thank You Letter sb4 Prescriptions: - Amoxicillin 875 mg Oral Tablet - take 1 tablet ORAL route every 12 hours for 10 days; 20 tablet; Refills: 0, sb4 Product Selection Permitted Signatures: Dispatcher [employer] Hong Bean RN RN ll1 Susan Pedraza RN RN kc6 Valerie Wilkins PA-C PATeetee sb4 Corrections: (The following items were deleted from the chart) 08:36 08:29 SARS-COV-2 Antigen Rapid+I.LAB.IDALMISZ ordered. EDMS EDMS
--- NOTE | 2022-11-15 09:26 | ER ---
Nurse's Notes [facility] Name: Henna Reina Age: 27 yrs Sex: Female : 1995 Arrival Date: 11/15/2022 Time: 08:13 Bed 14 Private MD: Diagnosis: Streptococcal pharyngitis Presentation: 11/15 08:24 Chief complaint: Patient states: Fever, sweats, PETE, N/V, sore throat, dizzy since ll1 yesterday. Coronavirus screen: Vaccine status: Patient reports being unvaccinated. Client denies travel out of the [place] in the last 14 days. fatigue, fever, headache, muscle pain, nausea, sore throat, vomiting. Client presents with at least one sign or symptom that may indicate coronavirus-19. Standard/surgical mask placed on the client. Ebola Screen: Patient denies travel to an Ebola-affected area in the 21 days before illness onset. Initial Sepsis Screen: Does the patient meet any 2 criteria? HR > 90 bpm. No. Patient's initial sepsis screen is negative. Does the patient have a suspected source of infection? Yes: Acute abdominal pain. Risk Assessment: Do you want to hurt yourself or someone else? Patient reports no desire to harm self or others. Onset of symptoms was November 14, 2022. 08:24 Method Of Arrival: Ambulatory ll1 08:24 Acuity: INGRID 3 ll1 Historical: - Allergies: 08:24 No Known Allergies; ll1 - PMHx: 08:24 None; ll1 - PSHx: 08:24 None; ll1 - Immunization history:: Adult Immunizations up to date. - Social history:: Smoking status: Patient denies any tobacco usage or history of. Screenin:45 [facility] ED Fall Risk Assessment (Adult) History of falling in the last 3 months, kc6 including since admission No falls in past 3 months (0 pts) Confusion or Disorientation No (0 pts) Intoxicated or Sedated No (0 pts) Impaired Gait No (0 pts) Mobility Assist Device Used No (0 pt) Altered Elimination No (0 pt) Score/Fall Risk Level 0 - 2 = Low Risk. Abuse screen: Denies threats or abuse. Denies injuries from another. Nutritional screening: No deficits noted. Tuberculosis screening: No symptoms or risk factors identified. Assessment: 08:45 General: Appears in no apparent distress. comfortable, ill, obese, well groomed, kc6 Behavior is calm, cooperative, appropriate for age. Pain: Denies pain. Neuro: Level of Consciousness is awake, alert, obeys commands, Oriented to person, place, time, situation, Appropriate for age Reports dizziness. Cardiovascular: Heart tones S1 S2 present Capillary refill < 3 seconds. Respiratory: Airway is patent Trachea midline Respiratory effort is even, unlabored, Respiratory pattern is regular, symmetrical. GI: Abdomen is round non-distended, obese, Reports nausea, vomiting, Patient currently denies diarrhea. : No signs and/or symptoms were reported regarding the genitourinary system. EENT: Reports difficulty swallowing. Derm: No signs and/or symptoms reported regarding the dermatologic system. Skin is intact, is healthy with good turgor, Skin is pink, warm \T\ dry. Musculoskeletal: No signs and/or symptoms reported regarding the musculoskeletal system. Circulation, motion, and sensation intact. Capillary refill < 3 seconds, Range of motion: intact in all extremities. 09:27 Reassessment: d/c pending IV fluid completion. kc6 Vital Signs: 08:24 BP 113 / 78; Pulse 112; Resp 18; Temp 98.2; Pulse Ox 100% ; Height 5 ft. 1 in. ; Pain ll1 6/10; 09:27 BP 120 / 77; Pulse 101; Resp 16 S; Pulse Ox 100% on R/A; kc6 08:24 Pain Scale: Adult ll1 ED Course: 08:17 Patient arrived in ED. mg5 08:19 Valerie Wilkins PA-C is PHCP. sb4 08:19 Harman Otero is Attending Physician. sb4 08:23 Arm band placed on Patient placed in an exam room, on a stretcher. ll1 08:25 Triage completed. ll1 08:31 Susan Pedraza, RORY is Primary Nurse. kc6 08:41 Inserted saline lock: 22 gauge in right forearm, using aseptic technique. Blood ds4 collected. 08:45 Patient has correct armband on for positive identification. Bed in low position. Call kc6 light in reach. Side rails up X 1. Client placed on continuous cardiac and pulse oximetry monitoring. NIBP monitoring applied. 10:08 No provider procedures requiring assistance completed. IV discontinued, intact, kc6 bleeding controlled, No redness/swelling at site. Pressure dressing applied. Administered Medications: 08:43 Drug: NS 0.9% IV 1000 ml IV at 1 bolus Per protocol; 1000 mL bolus Route: IV; Rate: 1 kc6 bolus; Site: right antecubital; : Follow up: Response: No adverse reaction; IV Status: Completed infusion; IV Intake: kc6 1000ml 08:43 Drug: Magnesium Sulfate IVPB 1 grams IVPB once over 1 hrs Route: IVPB; Infused Over: 1 kc6 hrs; Site: right antecubital; : Follow up: Response: No adverse reaction; IV Status: Completed infusion; IV Intake: kc6 100ml 08:43 Drug: metoCLOPramide IVP 10 mg IVP once; over 1 to 2 minutes Route: IVP; Site: right kc6 antecubital; Follow up: Response: No adverse reaction kc6 08:43 Drug: Ketorolac IVP 30 mg IVP once Route: IVP; Site: right antecubital; kc6 : Follow up: Response: No adverse reaction; Pain is decreased kc6 Medication: 10:08 VIS not applicable for this client. kc6 Intake: 10:07 IV: 1000ml; Total: 1000ml. kc6 10:07 IV: 100ml; Total: 1100ml. kc6 Outcome: Discharge ordered by MD. sb4 10:08 Discharged to home ambulatory, kc6 10:08 Condition: stable 10:08 Discharge instructions given to patient, Instructed on discharge instructions, follow up and referral plans. medication usage, Demonstrated understanding of instructions, follow-up care, medications, Prescriptions given X 1, 10:08 Patient left the ED. kc6 Signatures: David Muhammad ds4 Hong Romano RN RN ll1 Susan Pedraza RN RN kc6 Valerie Wilkins PA-C PADeniaC sb4 [place] mg5
[2022-11-15 09:37] LABS: Blood Morphology Comment NOT SEEN (NOT SEEN); Platelet Estimate ADEQ; White Blood Cell Scan OK (OK)
[2022-11-15 11:09] VITALS: TEMP 98.2; O2SAT 100
[2022-11-15 11:11] VITALS: BP 120/77
== END 2022-11-15 10:08 | disposition home or self-care (01) ==
LOC: ER 08:13
DX: J02.0 Streptococcal pharyngitis (principal); Z20.822 Contact with and (suspected) exposure to COVID-19
CPT/HCPCS: 36415; 80053; 83690; 85025; 87081; 87635; 87804; J2765; J3475; J7030

== ENCOUNTER → 2023-04-16 | Emergency (ER) | payer SELFPAY ==
--- OUTSIDE RECORDS SUMMARY | 2023-04-16 18:17 | XMS REPORT | Continuity of Care Document ---
Author Name Unknown Address [address] [facility] [address] [place] [address] [facility] Address [address] [facility] [address] [place] [address] Care Team Providers Care Community Service Organization Director Name Role Phone PCP, PATIENT DOES NOT HAVE A Primary Care Physic maryellen Unavailable NUHA REIS Attending Clinician Unavaila NUHA Peacock Attending Clinician Unavaila radha MEMBRENO Attending Clinician Unavailable GREGORIA EDGAR Attending Clinician UnavailGregoria Sosa DO Attending Clinician [phone] Doctor Unassigned, [place] Attending Clinician U Hermila Martines Attending Clinician [phone] HERMILA EDGAR Attending Clinician UnavailJil He Attending Clinician [phone] HASEEB Admitting Clinician Unavailable Payers Payer Name Policy Type Policy Number Effective Date Expirati on Date Source Problems Condition Name Condition Details Condition Category Status Onset Date Resolution Date Last Treatment Date Treating Clinician Comments Source Nexplanon insertion Nexplanon insertion Disease Active 2017-02 00:00: 00 [facility] Encounter for contracept олег management , unspecifie d type Encounter for contracept олег management , unspecifie d type Disease Active 2017-02 00:00: 00 [facility] BMI 40.0-44.9, adult BMI 40.0-44.9, adult Disease Active 2017-02 00:00: 00 [facility] Screening examinatio n for STD (sexually transmitte d disease) Screening examinatio n for STD (sexually transmitte d disease) Disease Active 2017-02 00:00: 00 [facility] Morbid obesity Morbid obesity Disease Active 03-19 00:00: 00 [facility] Essential hypertensi on, benign Essential hypertensi on, benign Disease Active 03-19 00:00: 00 [facility] Allergies, Adverse Reactions, Alerts Allergy Name Allergy Type Status Severity Reaction(s) Onset Date Inactive Date Treating Clinician Comments Source NO KNOWN ALLERGIE S Drug Class Active [facility] Social History Social Habit Start Date Stop Date Quantity Comments Source Exposure to SARS-CoV-2 (event) Not sure [facility] Alcohol intake 2021-07-07 00:00:00 2021-07-07 00:00:00 0 /d [facility] Tobacco use and exposure 2018-01-03 00:00:00 2018-01-03 00:00:00 Never used [facility] Tobacco Comment 2018-01-03 00:00:00 2018-01-03 00:00:00 1-2 cig every other day [facility] History of tobacco use 2013-04-26 00:00:00 2017-02-26 00:00:00 Cigarette Smoker [facility] Sex Assigned At 1995 00:00:00 1995 00:00:00 [facility] Smoking Status Start Date Stop Date Source Never Smoker [facility] Current some day smoker 2018-01-03 00:00:00 [facility] Medications Ordered Medication Name Filled Medication Name Start Date Stop Date Current Medication? Ordering Clinician Indication Dosage Frequency Signature (SIG) Comments Components Source clindamycin 300 mg capsule 2020-02 00:00: 00 01-23 05:59 :00 No [id number] 300mg Take 1 capsule by mouth 4 (four) times daily for 7 days. [facility] traMADOL (ULTRAM) 50 mg tablet 2017-02 00:00: 00 Yes 50mg Take 1 tablet by mouth every 6 (six) hours as needed for Pain (scale 7-10). [facility] traMADOL (ULTRAM) 50 mg tablet 2017-02 00:00: 00 Yes 50mg Take 1 tablet by mouth every 6 (six) hours as needed for Pain (scale 7-10). [facility] traMADOL (ULTRAM) 50 mg tablet 2017-02 00:00: 00 Yes 50mg Take 1 tablet by mouth every 6 (six) hours as needed for Pain (scale 7-10). [facility] traMADOL (ULTRAM) 50 mg tablet 2017-02 00:00: 00 Yes 50mg Take 1 tablet by mouth every 6 (six) hours as needed for Pain (scale 7-10). [facility] traMADOL (ULTRAM) 50 mg tablet 2017-02 00:00: 00 Yes 50mg Take 1 tablet by mouth every 6 (six) hours as needed for Pain (scale 7-10). [facility] phentermine 37.5 mg tablet TAKE ONE (1) TABLET(S) BY MOUTH ONCE A DAY. phentermine 37.5 mg tablet TAKE ONE (1) TABLET(S) BY MOUTH ONCE A DAY. No phentermin e 37.5 mg tablet TAKE ONE (1) TABLET(S) BY MOUTH ONCE A DAY. [facility]ino [facility] Vital Signs Vital Name Observation Time Observation Value Comments S ource BP Diastolic 2021-10-03 00:00:00 78 mm[Hg] [place] [facility] Height 2021-10-03 00:00:00 60 [in_i] Jim orda [facility] BMI (Body Mass Index) 2021-10-03 00:00:00 47.7 kg/m2 [place] [facility] BP Systolic 2021-10-03 00:00:00 109 mm[Hg] Martin cheryl [facility] Body Weight 2021-10-03 00:00:00 244.2 [lb_av] [place] [facility] BP Diastolic 2021-09-22 00:00:00 81 mm[Hg] Manuel lazo [facility] Height 2021-09-22 00:00:00 60 [in_i] Jim zaman [facility] BMI (Body Mass Index) 2021-09-22 00:00:00 47.3 kg/m2 [place] [facility] BP Systolic 2021-09-22 00:00:00 111 mm[Hg] Mario luna [facility] Body Weight 2021-09-22 00:00:00 242 [lb_av] Manuel lazo [facility] Systolic blood pressure 2021-07-07 14:47:00 135 mm[Hg] [facility] Diastolic blood pressure 2021-07-07 14:47:00 78 mm[Hg] [facility] Heart rate 2021-07-07 14:47:00 84 /min [facility] Body temperature 2021-07-07 14:47:00 36.22 Nighat [facility] Respiratory rate 2021-07-07 14:47:00 18 /min [facility] Body height 2021-07-07 14:47:00 154.9 cm [facility] Body weight 2021-07-07 14:47:00 114.306 kg [facility] BMI 2021-07-07 14:47:00 47.61 kg/m2 [facility] Oxygen saturation in Arterial blood by Pulse oximetry 2021-07-07 14:47:00 98 /min [facility] Systolic blood pressure 2021-01-15 16:01:00 133 mm[Hg] [facility] Diastolic blood pressure 2021-01-15 16:01:00 80 mm[Hg] [facility] Heart rate 2021-01-15 16:01:00 103 /min [facility] Body temperature 2021-01-15 16:01:00 37.11 Nighat [facility] Respiratory rate 2021-01-15 16:01:00 18 /min [facility] Body height 2021-01-15 16:01:00 154.9 cm [facility] Body weight 2021-01-15 16:01:00 122.471 kg [facility] BMI 2021-01-15 16:01:00 51.02 kg/m2 [facility] Oxygen saturation in Arterial blood by Pulse oximetry 2021-01-15 16:01:00 98 /min [place] [facility] Procedures Procedure Date / Time Performed Performing Clinicia n Source RAPID STREP SCREEN FOR GROUP A 2021-07-07 14:52:00 Gregoria Edgar [facility] NOTICE OF PRIVACY PRACTICES 2021-07-07 14:41:32 Doctor Unassigned, [place] [facility] CONSENT/REFUSAL FOR DIAGNOSIS AND TREATMENT 2021-07-07 14:41:11 Doctor Unassigned, [place] [facility] ASSIGNMENT OF BENEFITS 2021-01-15 16:11:51 Docto r Unassigned, [place] [facility] Plan of Care Planned Activity Planned Date Details Comments Source Diagnostic Test Pending 2021-10-03 00:00:00 pap, IG + CT/NG + HR HPV + reflex HPV (16+18) [code = pap, IG + CT/NG + HR HPV + reflex HPV (16+18)] [facility] Diagnostic Test Pending 2021-10-03 00:00:00 bacterial vaginosis + vaginitis panel, vaginal [code = bacterial vaginosis + vaginitis panel, vaginal] [facility] Diagnostic Test Pending 2021-10-03 00:00:00 HbA1c (hemoglobin A1c), blood [code = HbA1c (hemoglobin A1c), blood] [facility] Diagnostic Test Pending 2021-10-03 00:00:00 CBC w/ auto diff [code = CBC w/ auto diff] [facility] Diagnostic Test Pending 2021-10-03 00:00:00 CMP, serum or plasma [code = CMP, serum or plasma] [facility] Diagnostic Test Pending 2021-10-03 00:00:00 HIV (1+2) antibodies, EIA, serum, reflex HIV-1 western blot (WB) [code = HIV (1+2) antibodies, EIA, serum, reflex HIV-1 western blot (WB)] [facility] Diagnostic Test Pending 2021-10-03 00:00:00 hsv (1+2) igg Ab, serum [code = hsv (1+2) igg Ab, serum] [facility] Diagnostic Test Pending 2021-10-03 00:00:00 RPR (rapid plasma reagin), serum [code = RPR (rapid plasma reagin), serum] [facility] Diagnostic Test Pending 2021-10-03 00:00:00 hepatitis (A+B+C) panel, serum [code = hepatitis (A+B+C) panel, serum] [facility] Diagnostic Test Pending 2021-10-03 00:00:00 lipid panel, blood [code = lipid panel, blood] [facility] Diagnostic Test Pending 2021-10-03 00:00:00 vitamin D, 25-hydroxy, total, serum [code = vitamin D, 25-hydroxy, total, serum] [facility] Encounters Start Date/Time End Date/Time Encounter Type Admission Type Attending [facility] Care Facility Care Department Encounter ID Source 2022-10-25 13:33:49 2022-10-25 13:33:49 Outpatient [facility] [id number] Aureliano Solis 2022-05-23 14:30:00 2022-05-23 14:30:00 Outpatient NUHA GARCIA CHERYAL [facility] [id number] [facility] 2021-12-07 00:00:00 2021-12-07 00:00:00 Outpatient AMBREEN_FAR HANA [facility] [id number] [facility] 2021-11-02 00:00:00 2021-11-02 00:00:00 Outpatient AMBREEN_FAR HANA [facility] [id number] [place] [facility] 2021-10-10 00:00:00 2021-10-10 00:00:00 [facility] [id number] [place] [facility] 2021-10-03 00:00:00 2021-10-03 00:00:00 Outpatient AMBREEN_FAR HANA [facility] [id number] [place] [facility] 2021-10-03 00:00:00 2021-10-03 00:00:00 Jw Bess MD: [id number] [facility] [address], [place] [address] , Ph. [phone] [facility] [place] [facility] [place] [facility] [employer] [place] [id number] [place] [facility] 2021-09-28 00:00:00 2021-09-28 00:00:00 Outpatient AMBREEN_FAR HANA [facility] [id number] [place] [facility] 2021-09-22 00:00:00 2021-09-22 00:00:00 Outpatient AMBREEN_FAR HANA [facility] [id number] [place] [facility] 2021-09-22 00:00:00 2021-09-22 00:00:00 Jw Bess MD: [id number] [facility] [address], [place] [address] , Ph. [phone] [facility] [place] [facility] [place] [facility] [employer] [place] [id number] [place] [facility] 2021-09-21 00:00:00 2021-09-21 00:00:00 Outpatient AMBREEN_FAR HANA [facility] [id number] [place] [facility] 2021-09-19 00:00:00 2021-09-19 00:00:00 Outpatient AMBREEN_FAR HANA [facility] [id number] [place] [facility] 2021-07-07 09:50:00 2021-07-07 11:12:00 Emergency X GREGORIA EDAGR [facility] [id number] [facility] 2021-07-07 09:50:00 2021-07-07 11:12:00 Emergency Gregoria Edgar [facility] [id number] [facility] 2021-07-07 00:00:00 2021-07-07 00:00:00 Orders Only Doctor Unassigned, [place] [facility] [id number] [facility] 2021-03-28 00:00:00 2021-03-28 00:00:00 Telephone Hermila Edgar [facility] DEPUTY [employer]UVEN[employer] OFFICER [facility] MATERNAL & CHILD [facility] [id number] [facility] 2021-01-15 10:02:00 2021-01-15 10:22:00 Emergency Gregoria Edgar [facility] [id number] [facility] 2021-01-15 10:02:00 2021-01-15 10:22:00 Emergency X GREGORIA EDGAR [facility] ERT [id number] [facility] 2020-06-24 09:00:00 2020-06-24 09:00:00 Outpatient R HERMILA EDGAR [facility] [id number] [facility] 2020-06-21 00:00:00 2020-06-21 00:00:00 Telephone Jil Moe [facility] DEPUTY [employer]UVENILE OFFICER [facility]ILD [facility] [id number] [facility] Results Test Description Test Time Test Comments Results Result Co ents Source
[2023-04-16 19:38] LABS: SARS-CoV-2 Antigen Rapid Res Negative (Negative)
--- NOTE | 2023-04-16 20:11 | EDPHYS ---
Physician Documentation [facility] Name: Henna Reina Age: 28 yrs Sex: Female : 1995 Arrival Date: 04/16/2023 Time: 18:13 Bed 9 Private MD: ED Physician Fidencio Bender HPI: 04/16 18:55 This 28 yrs old Female presents to ER via Ambulatory with complaints of Sore cp Throat, Ear Pain. 18:55 The patient presents with sore throat. The patient describes throat pain as constant. cp Historical: - Allergies: 18:55 No Known Allergies; ph - Immunization history:: Adult Immunizations up to date. - Social history:: Smoking status: Patient denies any tobacco usage or history of. ROS: 19:00 Constitutional: Negative for body aches, chills, fever, poor PO intake, cp 19:00 Eyes: Negative for injury, pain, redness, and discharge, cp 19:00 ENT: Positive for ear pain, rhinorrhea, sore throat, Negative for drainage from ear(s), difficulty swallowing, difficulty handling secretions, 19:00 Respiratory: Negative for cough, shortness of breath, wheezing, 19:00 Abdomen/GI: Negative for abdominal pain, vomiting, diarrhea, constipation, 19:00 Skin: Negative for cellulitis, rash, 19:00 Neuro: Negative for altered mental status, dizziness, headache, 19:00 All other systems are negative, Exam: 19:05 Constitutional: The patient appears in no acute distress, alert, awake, non-toxic, well cp developed, well nourished, obese, 19:05 Head/Face: Normocephalic, atraumatic. cp 19:05 Eyes: Periorbital structures: appear normal, Conjunctiva: normal, no exudate, no injection, Sclera: no appreciated abnormality, Lids and lashes: appear normal, bilaterally, 19:05 ENT: External ear(s): are unremarkable, Ear canal(s): cerumen impaction, that is moderate, bilaterally, TM's: not visable, because of cerumen, Nose: nasal drainage, that is minimal, Mouth: Lips: moist, Oral mucosa: pink and intact, moist, Posterior pharynx: Airway: no evidence of obstruction, patent, Tonsils: no enlargement, no exudate, Uvula: midline, swelling, is not appreciated, erythema, minimal, Voice: is normal, 19:05 Neck: ROM/movement: Meningeal signs: are not present, Lymph nodes: no appreciated lymphadenopathy, 19:05 Chest/axilla: Inspection: normal, 19:05 Cardiovascular: Rate: normal, 19:05 Respiratory: the patient does not display signs of respiratory distress, Respirations: normal, no use of accessory muscles, no retractions, labored breathing, is not present, Breath sounds: are clear throughout, no decreased breath sounds, no stridor, no wheezing, 19:05 Abdomen/GI: Exam negative for discomfort, distension, guarding, Vital Signs: 18:51 BP 118 / 85; Pulse 82; Resp 18; Temp 98.7(O); Pulse Ox 100% on R/A; Weight 122.47 kg; ph Height 5 ft. 1 in. ; 18:51 Body Mass Index 51.02 (122.47 kg, 154.94 cm) ph MDM: 18:52 Patient medically screened. cp 19:00 Differential diagnosis: group A strep tonsillitis, mononucleosis, peritonsillar abscess cp pharyngitis, tonsillitis, uvulitis, post nasal drip. 20:10 Data reviewed: vital signs, nurses notes, lab test result(s). cp 20:10 Counseling: I had a detailed discussion with the patient and/or guardian regarding the cp historical points, exam findings, and any diagnostic results supporting the discharge/admit diagnosis, lab results, to return to the emergency department if symptoms worsen or persist or if there are any questions or concerns that arise at home. 04/16 18:53 Order name: Strep cp 04/16 18:53 Order name: SARS RAPID cp 04/16 18:53 Order name: Influenza Screen (a \T\ B) cp 04/16 18:53 Order name: [place] Screen Profile cp 04/16 19:49 Order name: Throat Culture EDMS Administered Medications: No medications were administered Disposition Summary: 04/16/23 20:11 Discharge Ordered Notes: Location: Home cp Problem: new cp Symptoms: have improved cp Condition: Stable cp Diagnosis - Acute pharyngitis, unspecified cp - Impacted cerumen, bilateral cp Followup: cp - With: Private Physician - When: 2 - 3 days - Reason: Worsening of condition Discharge Instructions: - Discharge Summary Sheet cp - Earwax Buildup, Adult cp - Sore Throat cp - Ear Irrigation cp Forms: - Medication Reconciliation Form cp - Thank You Letter cp - Antibiotic Education cp - Prescription Opioid Use cp - Patient Portal Instructions cp - Leadership Thank You Letter cp Prescriptions: - Zyrtec-D 5-120 mg Oral Tablet Sustained Release 12 hr - take 1 tablet ORAL route every 12 hours As needed; 20 tablet; Refills: 0, cp Product Selection Permitted Signatures: Dispatcher [employer] Geeta Soliman, RN RN ph Fidencio Majano, PA PA Nilo Zambrano, RN RN as6
--- NOTE | 2023-04-16 20:11 | ER ---
Nurse's Notes [facility] Name: Henna Reina Age: 28 yrs Sex: Female : 1995 Arrival Date: 04/16/2023 Time: 18:13 Bed 9 Private MD: Diagnosis: Acute pharyngitis, unspecified;Impacted cerumen, bilateral Presentation: 04/16 18:51 Chief complaint: Patient states: Sore throat x 2 weeks, denies fever. Coronavirus ph screen: Vaccine status: Patient reports receiving the 2nd dose of the covid vaccine. Ebola Screen: No symptoms or risks identified at this time. Initial Sepsis Screen: Does the patient meet any 2 criteria? No. Patient's initial sepsis screen is negative. Does the patient have a suspected source of infection? No. Patient's initial sepsis screen is negative. Risk Assessment: Do you want to hurt yourself or someone else? Patient reports no desire to harm self or others. Onset of symptoms was April 16, 2023. 18:51 Method Of Arrival: Ambulatory ph 18:51 Acuity: INGRID 4 ph Historical: - Allergies: 18:55 No Known Allergies; ph - Immunization history:: Adult Immunizations up to date. - Social history:: Smoking status: Patient denies any tobacco usage or history of. Screenin:40 [facility] ED Fall Risk Assessment (Adult) Score/Fall Risk Level 0 - 2 = Low Risk. Abuse as6 screen: Denies threats or abuse. Denies injuries from another. Nutritional screening: No deficits noted. Tuberculosis screening: No symptoms or risk factors identified. Assessment: 19:00 General: Appears ill, well groomed, well developed, well nourished, Behavior is calm, me1 cooperative, appropriate for age. Pain: Complains of pain in throat Pain does not radiate. Pain currently is 4 out of 10 on a pain scale. Quality of pain is described as tender, Pain began 2 weeks ago Is continuous. Neuro: Level of Consciousness is awake, alert, obeys commands, Oriented to person, place, time, situation, Appropriate for age. Cardiovascular: Capillary refill < 3 seconds Patient's skin is warm and dry. Respiratory: Airway is patent Trachea midline Respiratory effort is even, unlabored, Respiratory pattern is regular, symmetrical. EENT: Reports sore throat x 2 weeks. . 20:41 General: Appears in no apparent distress. Behavior is calm, cooperative. Pain: as6 Complains of pain in throat. EENT: Reports sore throat . Vital Signs: 18:51 BP 118 / 85; Pulse 82; Resp 18; Temp 98.7(O); Pulse Ox 100% on R/A; Weight 122.47 kg; ph Height 5 ft. 1 in. ; 18:51 Body Mass Index 51.02 (122.47 kg, 154.94 cm) ph ED Course: 18:16 Patient arrived in ED. mr 18:17 Fidencio Majano PA is PHCP. cp 18:17 Fidencio Bender MD is Attending Physician. cp 18:54 Triage completed. ph 18:55 Arm band placed on Patient placed in an exam room. ph 19:28 Inserted saline lock: 22 gauge in right antecubital area, using aseptic technique. km8 Blood collected. 19:28 [place] Screen Profile Sent. km8 19:28 Influenza Screen (a \T\ B) Sent. km8 19:28 SARS RAPID Sent. km8 19:28 Strep Sent. km8 19:50 Dionna Jewell, RORY is Primary Nurse. me1 20:40 Bed in low position. Call light in reach. Provided Education on: viral infection . as6 20:41 No provider procedures requiring assistance completed. IV discontinued, intact, as6 bleeding controlled, No redness/swelling at site. Pressure dressing applied. Administered Medications: No medications were administered Medication: 20:40 VIS not applicable for this client. as6 Outcome: 20:11 Discharge ordered by MD. cp 20:39 Discharged to home ambulatory, as6 20:39 Condition: stable 20:39 Discharge instructions given to patient, Instructed on discharge instructions, follow up and referral plans. medication usage, Demonstrated understanding of instructions, follow-up care, medications, Prescriptions given X 1, 20:42 Patient left the ED. as6 Signatures: Lorraine Treadwell, Reg Reg Geeta Echavarria, RN RN Fidencio Majano PA PA cp Nilo Mata RN RN as6 Dionna Jewell RN RN me1 Britney Jordan RN RN km8 Corrections: (The following items were deleted from the chart) 20:54 19:00 Reassessment: No changes from previously documented assessment. me1 me1
[2023-04-16 21:04] VITALS: BP 118/85; TEMP 98.7; O2SAT 100
== END ==
LOC: ER 18:13
DX: J02.9 Acute pharyngitis, unspecified (principal); H61.23 Impacted cerumen, bilateral; Z11.52 Encounter for screening for COVID-19
CPT/HCPCS: 36415; 86308; 87070; 87081; 87804; 87811; 99284

== ENCOUNTER 2024-03-15 21:40 | Emergency (ER) | payer OTHER, SELFPAY ==
--- OUTSIDE RECORDS SUMMARY | 2024-03-15 21:43 | XMS REPORT | Continuity of Care Document ---
Author Name Unknown Address [address] [facility] [address] [place] [address] [facility] thconnect Address [address] [facility] [address] [place] [address] Care Team Providers Care Water Quality Assistant Name Role Phone Angela Martins Primary Care Physician [phone] ZOEY BANUELOS Attending Clinician Unavailable PEYTON MENDES Attending Clinician Unavail able Vin Zoey MARIN Attending Clinician [phone] MARYBETH HALL Attending Clinician Unavailable Viridiana Kee CNM Attending Clinician NUHA REIS Attending Clinician UnavailNUHA Scott Attending Clinician Unavaila ble AMBREEN_JENNIFERA Attending Clinician Unavailable GREGORIA EDGAR Attending Clinician UnavailGregoria Sosa DO Attending Clinician [phone] Doctor Unassigned, [employer] Attending Clinician U Hermila Martines Attending Clinician [phone] HERMILA EDGAR Attending Clinician UnavailJil He Attending Clinician [phone] AMBREEN_JENNIFERA Admitting Clinician Unavailable Payers Payer Name Policy Type Policy Number Effective Date Expirati on Date Source [facility] [id number] 2018 00:00:00 2020 00:00:00 Problems Condition Name Condition Details Condition Category Status Onset Date Resolution Date Last Treatment Date Treating Clinician Comments Source Screening examinatio n for STD (sexually transmitte d disease) Screening examinatio n for STD (sexually transmitte d disease) Disease Active 2017-02 00:00: 00 [facility] Essential hypertensi on, benign Essential hypertensi on, benign Disease Active 03-19 00:00: 00 [facility] Nexplanon insertion Nexplanon insertion Disease Resolve d 2017-02 00:00: 00 2023-09-26 00:00:00 2023-09-26 14:23:38 [facility] Encounter for contracept олег management , unspecifie d type Encounter for contracept олег management , unspecifie d type Disease Resolve d 2017-02 00:00: 00 2023-09-26 00:00:00 2023-09-26 14:23:41 [facility] BMI 40.0-44.9, adult BMI 40.0-44.9, adult Disease Resolve d 2017-02 00:00: 00 2023-09-26 00:00:00 2023-09-26 14:24:14 [facility] Morbid obesity Morbid obesity Disease Resolve d 03-19 00:00: 00 2023-09-26 00:00:00 2023-09-26 14:23:55 [facility] S/P section S/P section Disease Resolve d 11-24 00:00: 00 2017-12-13 00:00:00 2017-12-13 09:08:29 [facility] 39 weeks gestation of 39 weeks gestation of Disease Resolve d 11-23 00:00: 00 2017-12-13 00:00:00 2017-12-13 09:08:18 [facility] Supervisio n of high risk , antepartum Supervisio n of high risk , antepartum Disease Resolve d 8-03 00:00: 00 2017-12-13 00:00:00 2017-12-13 09:08:31 [facility] Anemia of mother in , antepartum Anemia of mother in , antepartum Disease Resolve d 2017-0 7- 00:00: 00 2017-12-13 00:00:00 2017-12-13 09:08:20 [facility] Previous delivery affecting , antepartum Previous delivery affecting , antepartum Disease Resolve d 0 3-29 00:00: 00 2017-12-13 00:00:00 2017-12-13 09:08:25 [facility] Rubella non-immune status, antepartum Rubella non-immune status, antepartum Disease Resolve d 0 3-02 00:00: 00 2017-12-13 00:00:00 2017-12-13 09:08:27 [facility] Multiparit y Multiparit y Disease Resolve d 0 3- 00:00: 00 2017-12-13 00:00:00 2017-12-13 09:08:23 [facility] Obesity in Obesity in Disease Resolve d 0 3- 00:00: 00 2017-12-13 00:00:00 2017-12-13 09:08:24 [facility] Abnormal maternal glucose tolerance, antepartum Abnormal maternal glucose tolerance, antepartum Disease Resolve d 0 7- 00:00: 00 2017-10-26 00:00:00 2017-10-26 13:57:52 [facility] Nausea and vomiting during prior to 22 weeks gestation Nausea and vomiting during prior to 22 weeks gestation Disease Resolve d 0 05-24 00:00: 00 2017-10-26 00:00:00 2017-10-26 13:57:41 [facility] Supervisio n of high-risk , second trimester Supervisio n of high-risk , second trimester Disease Resolve d 0 3- 00:00: 00 2017-10-12 00:00:00 2017-10-12 08:58:11 [facility] History of primary section History of primary section Disease Resolve d 1- 00:00: 00 2017-07-27 00:00:2017-07-27 08:27:36 [facility] Supervisio n of high risk , antepartum , first trimester Supervisio n of high risk , antepartum , first trimester Disease Resolve d 3- 00:00: 00 2017-05-24 00:00:00 2017-05-24 10:03:35 [facility] Group B Streptococ cus carrier state affecting Group B Streptococ cus carrier state affecting Disease Resolve d 2015-02 2-09 00:00: 00 2017-05-24 00:00:00 2017-05-24 10:03:43 [facility] BV (bacterial vaginosis) BV (bacterial vaginosis) Disease Resolve d 8-23 00:00: 00 2017-04-26 00:00:00 2017-04-26 11:16:52 [facility] Immune to varicella Immune to varicella Disease Resolve d 6-24 00:00: 00 2017-04-26 00:00:00 2017-04-26 11:17:15 [facility] Cerumen impaction Cerumen impaction Disease Resolve d 3-04 00:00: 00 2017-04-26 00:00:00 2017-04-26 11:17:12 [facility] Vaginal discharge Vaginal discharge Disease Resolve d 1- 00:00: 00 2017-04-26 00:00:00 2017-04-26 11:16:44 [facility] Anovulator y (dysfuncti onal uterine) bleeding Anovulator y (dysfuncti onal uterine) bleeding Disease Resolve d 1- 00:00: 00 2017-04-26 00:00:00 2017-04-26 11:16:47 [facility] History of hyperlipid emia History of hyperlipid emia Disease Resolve d 1- 00:00: 00 2017-04-26 00:00:00 2017-04-26 11:17:09 [facility] Pain of both breasts Pain of both breasts Disease Resolve d 1- 00:00: 00 2017-04-26 00:00:00 2017-04-26 11:16:50 [facility] Rubella immune Rubella immune Disease Resolve d 9-12 00:00: 00 2017-04-26 00:00:00 2017-04-26 11:17:01 [facility] History of anemia History of anemia Disease Resolve d 9-10 00:00: 00 2017-04-26 00:00:00 2017-04-26 11:16:57 [facility] Normal labor and delivery Normal labor and delivery Disease Resolve d 2015-02 2-19 00:00: 00 2016-03-24 00:00:00 2016-03-24 13:25:18 [facility] High-risk , third trimester High-risk , third trimester Disease Resolve d 2015-02 00:00: 00 2016-03-24 00:00:00 2016-03-24 13:26:04 [facility] Chronic hypertensi on affecting Chronic hypertensi on affecting Disease Resolve d 2015-02 00:00: 00 2016-03-24 00:00:00 2016-03-24 13:25:25 [facility] Obesity complicati ng , third trimester Obesity complicati ng , third trimester Disease Resolve d 2015-02 00:00: 00 2016-03-24 00:00:00 2016-03-24 13:26:00 [facility] Uterine size date discrepanc y , third trimester Uterine size date discrepanc y , third trimester Disease Resolve d 2015-02 00:00: 00 2016-03-24 00:00:00 2016-03-24 13:25:28 [facility] Insufficie nt weight gain during , second trimester Insufficie nt weight gain during , second trimester Disease Resolve d 8 00:00: 00 2016-03-24 00:00:00 2016-03-24 13:25:55 [facility] Chronic hypertensi on in , second trimester Chronic hypertensi on in , second trimester Disease Resolve d 09-16 00:00: 00 2016-03-24 00:00:00 2016-03-24 13:25:47 [facility] Vaginal bleeding in , first trimester Vaginal bleeding in , first trimester Disease Resolve d 08-19 00:00: 00 2016-03-24 00:00:00 2016-03-24 13:25:50 [facility] Status post primary low transverse section Status post primary low transverse section Disease Resolve d 2015-02 00:00: 00 2016-03-14 00:00:00 2016-03-14 16:05:59 [facility] Liveborn infant, of yu , born in hospital by delivery Liveborn infant, of yu , born in hospital by delivery Disease Resolve d 2015-02 00:00: 00 2016-03-14 00:00:00 2016-03-14 16:05:59 [facility] Failure to progress in labor Failure to progress in labor Disease Resolve d 2015-02 00:00: 00 2016-03-14 00:00:00 2016-03-14 16:05:59 [facility] Chorioamni onitis in third trimester Chorioamni onitis in third trimester Disease Resolve d 2015-02 00:00: 00 2016-03-14 00:00:00 2016-03-14 16:05:59 [facility] High-risk , second trimester High-risk , second trimester Disease Resolve d 09-16 00:00: 00 2016-01-19 00:00:00 2016-01-19 16:35:35 [facility] Obesity complicati ng , second trimester Obesity complicati ng , second trimester Disease Resolve d 09-16 00:00: 00 2016-01-19 00:00:00 2016-01-19 16:35:52 [facility] heart rate/rhyth m abnormalit y, antepartum heart rate/rhyth m abnormalit y, antepartum Disease Resolve d 09-16 00:00: 00 2015-10-19 00:00:00 2015-10-19 11:37:51 [facility] Obesity affecting in first trimester, antepartum Obesity affecting in first trimester, antepartum Disease Resolve d 08-19 00:00: 00 2015-09-17 00:00:00 2015-09-17 17:13:32 [facility] Chronic hypertensi on in , first trimester Chronic hypertensi on in , first trimester Disease Resolve d 08-19 00:00: 00 2015-09-17 00:00:00 2015-09-17 17:13:10 [facility] High-risk supervisio n, first trimester High-risk supervisio n, first trimester Disease Resolve d 07-15 00:00: 00 2015-09-17 00:00:00 2015-09-17 17:13:20 [facility] General counseling and advice for contracept олег management General counseling and advice for contracept олег management Disease Resolve d 11-05 00:00: 00 2015-03-19 00:00:00 2021-09-11 00:32:04 [facility] Obesity Obesity Disease Resolve d 11-05 00:00: 00 2015-03-19 00:00:00 2021-09-11 00:32:04 [facility] Allergies, Adverse Reactions, Alerts Allergy Name Allergy Type Status Severity Reaction(s) Onset Date Inactive Date Treating Clinician Comments Source none (Not Checked) Propensi ty to adverse reaction to drug Active 2023-02 016 00:00: 00 Aureliano Solis NO KNOWN ALLERGIE S Drug Class Active [facility] Social History Social Habit Start Date Stop Date Quantity Comments Source [facility] to [facility]-2 (event) Not sure [facility] Tobacco use and exposure 2023-09-26 00:00:00 2023-09-26 00:00:00 Smokeless tobacco non-user [facility] Alcoholic beverage intake 2023-09-26 00:00:00 2023-09-26 00:00:00 0 /d [facility] Alcohol intake 2021-07-07 00:00:00 2021-07-07 00:00:00 0 /d [facility] History of Social function 2018-09-05 00:00:00 2018-09-05 00:00:00 [facility] Tobacco Comment 2018-01-03 00:00:00 2018-01-03 00:00:00 1-2 cig every other day [facility] History of tobacco use 2013-04-26 00:00:00 2013-04-26 00:00:00 Cigarette Smoker [facility] Sex assigned at 1995 00:00:00 1995 00:00:00 [facility] Smoking Status Start Date Stop Date Source Never Smoker [facility] Ex-smoker 2023-09-26 00:00:00 [facility] some day [facility]oker 2018-01-03 00:00:00 [facility] Medications Ordered Medication Name Filled Medication Name Start Date Stop Date Current Medication? Ordering Clinician Indication Dosage Frequency Signature (SIG) Comments Components Source Miconazole- 7 2 % vaginal cream 03-01 00:00: 00 Yes 1% Aureliano Solis metronidazo le 500 mg tablet 02-27 00:00: 00 Yes 1mg Aureliano Solis metronidazo le 500 mg tablet 2023-02 0-16 00:00: 00 Yes 1mg Aureliano Solis TAKE 1 CAPSULE BY MOUTH EVERY 12 HOURS FOR 5 DAYS 08-29 00:00: 00 Yes Aureliano Solis TAKE 1 TABLET BY MOUTH EVERY 6 HOURS WITH FOOD NEEDED FOR PAIN 08-29 00:00: 00 Yes Aureliano Solis TAKE ONE (1) TABLET(S) BY MOUTH ONCE A DAY. 08-17 00:00: 00 Yes Aureliano Solis TAKE ONE (1) TABLET(S) BY MOUTH ONCE A DAY. 05-26 00:00: 00 Yes Aureliano Solis clindamycin 300 mg capsule 2020-02 00:00: 00 01-23 05:59 :00 No [id number] 300mg Take 1 capsule by mouth 4 (four) times daily for 7 days. [facility] traMADOL (ULTRAM) 50 mg tablet 2017-02 00:00: 00 09-25 00:00 :00 No 50mg Take 1 tablet by mouth every 6 (six) hours as needed for Pain (scale 7-10). [facility] phentermine 37.5 mg tablet TAKE ONE (1) TABLET(S) BY MOUTH ONCE A DAY. phentermine 37.5 mg tablet TAKE ONE (1) TABLET(S) BY MOUTH ONCE A DAY. No phentermin e 37.5 mg tablet TAKE ONE (1) TABLET(S) BY MOUTH ONCE A DAY. Dino jean [facility] Program Immunizations Ordered Immunization Name Filled Immunization Name Date Status Comments Source HPV9 2018-05-28 00:00:00 Completed [facility] HPV9 2018-05-28 00:00:00 Completed [facility] HPV9 2018-05-28 00:00:00 Completed [facility] HPV9 2018-05-28 00:00:00 Completed [facility] HPV9 2018-05-28 00:00:00 Completed [facility] HPV9 2017-12-24 00:00:00 Completed [facility] HPV9 2017-12-24 00:00:00 Completed [facility] HPV9 2017-12-24 00:00:00 Completed [facility] HPV9 2017-12-24 00:00:00 Completed [facility] HPV9 2017-12-24 00:00:00 Completed [facility] HPV9 2017-11-25 00:00:00 Completed [facility] MMR 2017-11-25 00:00:00 Completed [facility] HPV9 2017-11-25 00:00:00 Completed [facility] MMR 2017-11-25 00:00:00 Completed [facility] HPV9 2017-11-25 00:00:00 Completed [facility] MMR 2017-11-25 00:00:00 Completed [facility] HPV9 2017-11-25 00:00:00 Completed [facility] MMR 2017-11-25 00:00:00 Completed [facility] HPV9 2017-11-25 00:00:00 Completed [facility] MMR 2017-11-25 00:00:00 Completed [facility] TDAP 2017-09-28 00:00:00 Completed [facility] TDAP 2017-09-28 00:00:00 Completed [facility] TDAP 2017-09-28 00:00:00 Completed [facility] TDAP 2017-09-28 00:00:00 Completed [facility] TDAP 2017-09-28 00:00:00 Completed [facility] TDAP 2015-12-07 00:00:00 Completed [facility] TDAP 2015-12-07 00:00:00 Completed [facility] TDAP 2015-12-07 00:00:00 Completed [facility] TDAP 2015-12-07 00:00:00 Completed [facility] TDAP 2015-12-07 00:00:00 Completed [facility] Influenza Virus Vaccine Quad IM 3+ YRS 2015-11-16 00:00:00 Completed [facility] Influenza Virus Vaccine Quad IM 3+ YRS 2015-11-16 00:00:00 Completed [facility] Influenza Virus Vaccine Quad IM 3+ YRS 2015-11-16 00:00:00 Completed [facility] Influenza Virus Vaccine Quad IM 3+ YRS 2015-11-16 00:00:00 Completed [facility] Influenza Virus Vaccine Quad IM 3+ YRS 2015-11-16 00:00:00 Completed [facility] TDAP 2011-10-06 00:00:00 Completed [facility] TDAP 2011-10-06 00:00:00 Completed [facility] TDAP 2011-10-06 00:00:00 Completed [facility] TDAP 2011-10-06 00:00:00 Completed [facility] TDAP 2011-10-06 00:00:00 Completed [facility] TDAP Unknown Completed [facility] Influenza Virus Vaccine Quad IM 3+ YRS Unknown Completed [facility] HPV9 Unknown Completed [facility] MMR Unknown Completed [facility] TDAP Unknown Completed [facility] Influenza Virus Vaccine Quad IM 3+ YRS Unknown Completed [facility] HPV9 Unknown Completed [facility] MMR Unknown Completed [facility] TDAP Unknown Completed [facility] Influenza Virus Vaccine Quad IM 3+ YRS Unknown Completed [facility] HPV9 Unknown Completed [facility] MMR Unknown Completed [facility] Vital Signs Vital Name Observation Time Observation Value Comments S ource Systolic blood pressure 2023-09-26 18:51:00 123 mm[Hg] [facility] Diastolic blood pressure 2023-09-26 18:51:00 68 mm[Hg] [facility] Heart rate 2023-09-26 18:51:00 88 /min [facility] Body temperature 2023-09-26 18:51:00 36.39 Nighat [facility] Respiratory rate 2023-09-26 18:51:00 18 /min [facility] Body height 2023-09-26 18:51:00 154.9 cm [facility] Body weight 2023-09-26 18:51:00 125.919 kg [facility] BMI 2023-09-26 18:51:00 52.45 kg/m2 [facility] BP Diastolic 2021-10-03 00:00:00 78 mm[Hg] [place] [facility] Height 2021-10-03 00:00:00 60 [in_i] [place] [facility] BMI (Body Mass Index) 2021-10-03 00:00:00 47.7 kg/m2 [place] [facility] BP Systolic 2021-10-03 00:00:00 109 mm[Hg] [place] [facility] Body Weight 2021-10-03 00:00:00 244.2 [lb_av] [place] [facility] BP Diastolic 2021-09-22 00:00:00 81 mm[Hg] [place] [facility] Height 2021-09-22 00:00:00 60 [in_i] [place] [facility] BMI (Body Mass Index) 2021-09-22 00:00:00 47.3 kg/m2 [place] [facility] BP Systolic 2021-09-22 00:00:00 111 mm[Hg] [place] [facility] Body Weight 2021-09-22 00:00:00 242 [lb_av] [place] [facility] Systolic blood pressure 2021-07-07 14:47:00 135 mm[Hg] [facility] Diastolic blood pressure 2021-07-07 14:47:00 78 mm[Hg] [facility] Heart rate 2021-07-07 14:47:00 84 /min [facility] Body temperature 2021-07-07 14:47:00 36.22 Nighat [facility] Respiratory rate 2021-07-07 14:47:00 18 /min [facility] Body height 2021-07-07 14:47:00 154.9 cm [facility] Body weight 2021-07-07 14:47:00 114.306 kg [facility] BMI 2021-07-07 14:47:00 47.61 kg/m2 [facility] Oxygen saturation in Arterial blood by Pulse oximetry 2021-07-07 14:47:00 98 /min [facility] Systolic blood pressure 2021-01-15 16:01:00 133 mm[Hg] [facility] Diastolic blood pressure 2021-01-15 16:01:00 80 mm[Hg] [facility] Heart rate 2021-01-15 16:01:00 103 /min [facility] Body temperature 2021-01-15 16:01:00 37.11 Nighat [facility] Respiratory rate 2021-01-15 16:01:00 18 /min [facility] Body height 2021-01-15 16:01:00 154.9 cm [facility] Body weight 2021-01-15 16:01:00 122.471 kg [facility] BMI 2021-01-15 16:01:00 51.02 kg/m2 [facility] Oxygen saturation in Arterial blood by Pulse oximetry 2021-01-15 16:01:00 98 /min [facility] BP Systolic 2024-02-28 11:21:00 126 mm[Hg] Brijesh Solis BP Diastolic 2024-02-28 11:21:00 65 mm[Hg] Pranav Solis Weight Measured 2024-02-28 11:21:00 278.00 pounds Aureliano Solis Height Measured 2024-02-28 11:21:00 62.50 inches Aureliano F Will Body Temperature 2024-02-28 11:21:00 98.70 degrees Aureliano F Will Heart Rate 2024-02-28 11:21:00 93.00 /min Sheryl en F Will Respiratory Rate 2024-02-28 11:21:00 17.00 /min Aureliano F Will Weight Measured 2024-01-31 11:10:00 277.60 pounds Aureliano F Will Height Measured 2024-01-31 11:10:00 62.50 inches Aureliano F Will Body Temperature 2024-01-31 11:10:00 98.10 degrees Aureliano F Will Heart Rate 2024-01-31 11:10:00 101.00 /min Step hen F Will Respiratory Rate 2024-01-31 11:10:00 18.00 /min Aureliano F Will BP Systolic 2024-01-31 11:10:00 112 mm[Hg] Step hen F Will BP Diastolic 2024-01-31 11:10:00 73 mm[Hg] Pranav phen F Will BP Systolic 2024-01-29 08:54:00 128 mm[Hg] Step hen F Will BP Diastolic 2024-01-29 08:54:00 82 mm[Hg] Pranav phen F Will Weight Measured 2024-01-29 08:54:00 278.60 pounds Aureliano F Will Height Measured 2024-01-29 08:54:00 62.50 inches Aureliano F Will Body Temperature 2024-01-29 08:54:00 98.30 degrees Aureliano F Will Heart Rate 2024-01-29 08:54:00 102.00 /min Step hen F Will Respiratory Rate 2024-01-29 08:54:00 19.00 /min Aureliano F Will Height Measured 2023-12-12 14:02:00 62.50 inches Aureliano F Will Body Temperature 2023-12-12 14:02:00 98.20 degrees Aureliano F Will Heart Rate 2023-12-12 14:02:00 106.00 /min Step hen F Will Respiratory Rate 2023-12-12 14:02:00 20.00 /min Aureliano F Will BP Systolic 2023-12-12 14:02:00 108 mm[Hg] Step hen F Will BP Diastolic 2023-12-12 14:02:00 60 mm[Hg] Pranav phen F Will Weight Measured 2023-12-12 14:02:00 277.00 pounds Aureliano F Will BP Systolic 2022-10-25 13:46:00 131 mm[Hg] Step hen F Will BP Diastolic 2022-10-25 13:46:00 87 mm[Hg] Pranav phen F Will Weight Measured 2022-10-25 13:46:00 270.00 pounds Aureliano F Will Height Measured 2022-10-25 13:46:00 62.50 inches Aureliano F Will Body Temperature 2022-10-25 13:46:00 97.60 degrees Aureliano F Will Heart Rate 2022-10-25 13:46:00 86.00 /min Sheryl en F Will Respiratory Rate 2022-10-25 13:46:00 Aureliano F Will BP Systolic 2020-04-02 16:09:00 132 mm[Hg] Step hen F Will BP Diastolic 2020-04-02 16:09:00 60 mm[Hg] Pranav phen F Will Weight Measured 2020-04-02 16:09:00 270.40 pounds Aureliano F Will Height Measured 2020-04-02 16:09:00 62.50 inches Aureliano F Will Body Temperature 2020-04-02 16:09:00 99.80 degrees Aureliano F Will Heart Rate 2020-04-02 16:09:00 78.00 /min Sheryl en F Will Respiratory Rate 2020-04-02 16:09:00 16.00 /min Aureliano F Will BP Systolic 2020-04-02 15:56:00 132 mm[Hg] Step hen F Will BP Diastolic 2020-04-02 15:56:00 60 mm[Hg] Pranav phen F Will Weight Measured 2020-04-02 15:56:00 270.60 pounds Aureliano F Will Height Measured 2020-04-02 15:56:00 62.50 inches Aureliano F Will Body Temperature 2020-04-02 15:56:00 99.30 degrees Aureliano F Will Heart Rate 2020-04-02 15:56:00 84.00 /min Sheryl en F Will Respiratory Rate 2020-04-02 15:56:00 16.00 /min Aureliano F Will Procedures Procedure Date / Time Performed Performing Clinicia n Source RAPID STREP SCREEN FOR GROUP A 2021-07-07 14:52:00 Gregoria Edgar [facility] NOTICE OF PRIVACY PRACTICES 2021-07-07 14:41:32 Doctor Unassigned, [employer] [facility] CONSENT/REFUSAL FOR DIAGNOSIS AND TREATMENT 2021-07-07 14:41:11 Doctor Unassigned, [employer] [facility] ASSIGNMENT OF BENEFITS 2021-01-15 16:11:51 Docto r Unassigned, [employer] [facility] Plan of Care Planned Activity Planned Date Details Comments Source Diagnostic Test Pending 2021-10-03 00:00:00 pap, IG + CT/NG + HR HPV + reflex HPV (16+18) [code = pap, IG + CT/NG + HR HPV + reflex HPV (16+18)] [facility] Diagnostic Test Pending 2021-10-03 00:00:00 bacterial vaginosis + vaginitis panel, vaginal [code = bacterial vaginosis + vaginitis panel, vaginal] [facility] Diagnostic Test Pending 2021-10-03 00:00:00 HbA1c (hemoglobin A1c), blood [code = HbA1c (hemoglobin A1c), blood] [facility] Diagnostic Test Pending 2021-10-03 00:00:00 CBC w/ auto diff [code = CBC w/ auto diff] [facility] Diagnostic Test Pending 2021-10-03 00:00:00 CMP, serum or plasma [code = CMP, serum or plasma] [facility] Diagnostic Test Pending 2021-10-03 00:00:00 HIV (1+2) antibodies, EIA, serum, reflex HIV-1 western blot (WB) [code = HIV (1+2) antibodies, EIA, serum, reflex HIV-1 western blot (WB)] [facility] Diagnostic Test Pending 2021-10-03 00:00:00 hsv (1+2) igg Ab, serum [code = hsv (1+2) igg Ab, serum] [facility] Diagnostic Test Pending 2021-10-03 00:00:00 RPR (rapid plasma reagin), serum [code = RPR (rapid plasma reagin), serum] [facility] Diagnostic Test Pending 2021-10-03 00:00:00 hepatitis (A+B+C) panel, serum [code = hepatitis (A+B+C) panel, serum] [facility] Diagnostic Test Pending 2021-10-03 00:00:00 lipid panel, blood [code = lipid panel, blood] [facility] Diagnostic Test Pending 2021-10-03 00:00:00 vitamin D, 25-hydroxy, total, serum [code = vitamin D, 25-hydroxy, total, serum] [facility] Encounters Start Date/Time End Date/Time Encounter Type Admission Type Attending [facility] Care Department Encounter ID Source 2024-03-13 08:36:53 2024-03-13 08:36:53 Outpatient SFA SFA [id number] Aureliano Solis 2024-02-28 12:50:21 2024-02-28 12:50:21 Outpatient SFA SFA [id number] Aureliano Solis 2024-02-28 00:00:00 2024-02-28 00:00:00 Outpatient Visit SFA [id number] Aureliano Solis 2024-02-26 13:10:50 2024-02-26 13:10:50 Outpatient SFA SFA [id number] Aureliano Solis 2024-02-19 11:07:43 2024-02-19 11:07:43 Outpatient SFA SFA [id number] Aureliano Solis 2024-02-18 08:30:00 2024-02-18 08:30:00 Outpatient PEYTON MATOS [facility] [id number] [facility] 2024-02-13 13:16:24 2024-02-13 13:16:24 Outpatient SFA SFA [id number] Aureliano Solis 2024-01-31 10:59:46 2024-01-31 10:59:46 Outpatient SFA [facility] [id number] Aureliano Solis 2024-01-31 00:00:00 2024-01-31 00:00:00 Outpatient Visit SFA [id number] Aureliano Solis 2024-01-29 08:47:59 2024-01-29 08:47:59 Outpatient SFA [facility] [id number] Aureliano Solis 2024-01-29 00:00:00 2024-01-29 00:00:00 Outpatient Visit SFA [id number] Aureliano Solis 2023-12-18 13:00:00 2023-12-18 13:00:00 Outpatient ZOEY FAROOQ [facility] [id number] [facility] 2023-12-12 14:01:49 2023-12-12 14:01:49 Outpatient SFA [facility] [id number] Aureliano Solis 2023-12-12 00:00:00 2023-12-12 00:00:00 Outpatient Visit SFA [id number] Aureliano Solis 2023-10-01 00:00:00 2023-10-01 15:21:01 Telephone Zoey Banuelos [facility]OVER [facility] .2.840.114 350.1.13.10 4.2.7.2.686 [id number] [facility] 2023-09-28 11:00:00 2023-09-28 11:07:00 Outpatient MARYBETH VALDEZ [facility] [id number] [facility] 2023-09-27 00:00:00 2023-09-27 11:43:31 Telephone Viridiana Kee [facility] ..840.114 350.1.13.10 4.2.7.2.686 [id number] [facility] 2023-09-26 14:00:00 2023-09-26 14:57:13 Outpatient R VINZOEY [facility] [id number] [facility] 2023-09-26 14:00:00 2023-09-26 14:57:13 Office Visit Zoey Banuelos [facility] 1.2.840.114 350.1.13.10 4.2.7.2.686 [id number] [facility] 2023-08-22 13:59:45 2023-08-22 13:59:45 Outpatient SFA SFA [id number] Aureliano Solis 2022-10-25 13:33:49 2022-10-25 13:33:49 Outpatient SFA SFA [id number] Aureliano Tab Will 2022-05-23 14:30:00 2022-05-23 14:30:00 Outpatient R NUHA REIS CHERYAL [facility] [id number] [facility] 2021-12-07 00:00:00 2021-12-07 00:00:00 Outpatient AMBREEN_FAR HANA [facility] [id number] [facility] 2021-11-02 00:00:00 2021-11-02 00:00:00 Outpatient AMBREEN_FAR HANA [facility] [id number] [facility] 2021-10-10 00:00:00 2021-10-10 00:00:00 Outpatient AMBREEN_FAR HANA [facility] [id number] [facility] 2021-10-03 00:00:00 2021-10-03 00:00:00 Outpatient AMBREEN_FAR HANA [facility] [id number] [facility] 2021-10-03 00:00:00 2021-10-03 00:00:00 Jw Bess MD: [address] [facility] [address], [place] [address] , Ph. 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 [id number] [facility] 2021-09-22 00:00:00 2021-09-22 00:00:00 Outpatient AMBREEN_FAR HANA [facility] [id number] [facility] 2021-09-22 00:00:00 2021-09-22 00:00:00 Jw Bess MD: [address] [facility] [address], [place] [address] , Ph. [phone] [facility] - [employer] - [employer] stock check[employer] [place] [id number] [facility] 2021-09-21 00:00:00 2021-09-21 00:00:00 Outpatient AMBREEN_FAR HANA [facility] [id number] [facility] 2021-09-19 00:00:00 2021-09-19 00:00:00 Outpatient AMBREEN_FAR HANA [facility] [id number] [facility] 2021-07-07 09:50:00 2021-07-07 11:12:00 Emergency X GREGORIA EDGAR [facility] ERT [id number] [facility] 2021-07-07 09:50:00 2021-07-07 11:12:00 Emergency Gregoria Edgar [facility] 1.2.840.114 350.1.13.10 4.2.7.2.686 [id number] [facility] 2021-07-07 00:00:00 2021-07-07 00:00:00 Orders Only Doctor Unassigned, [employer] [facility] 1.2.840.114 350.1.13.10 4.2.7.2.686 [id number] [facility] 2021-03-28 00:00:00 2021-03-28 00:00:00 Telephone Hermila Edgar [facility] CL[facility] 1..840.114 350.1.13.10 4.2.7.2.686 [id number] [facility] 2021-01-15 10:02:00 2021-01-15 10:22:00 Emergency X GREGORIA EDGAR [facility] ERT [id number] [facility] 2021-01-15 10:02:00 2021-01-15 10:22:00 Emergency Gregoria Edgar [facility] 1.840.114 350.1.13.10 4.2.7.2.686 [id number] [facility] 2020-06-24 09:00:00 2020-06-24 09:00:00 Outpatient R HERMILA EDGAR [facility] [id number] [facility] 2020-06-21 00:00:00 2020-06-21 00:00:00 Telephone Jil Moe [facility] CLAMP REMOVER [facility] & CHILD [facility] 1..840.114 350.1.13.10 4.2.7.2.686 [id number] [facility] Results Test Description Test Time Test Comments Results Result Co mments Source CULTURE, [id number] 00:00:00* Test Item Value Reference Range Interpretation Comme nts CULTURE, URINE (test code = 32274) SPECIMEN NUMBER: [id number] Aureliano Barth AustinHCG, [id number] 00:00:00* Test Item Value Reference Range Interpretation Comme nts HCG, QUANTITATIVE (test code = 2506) 91515 MIU/ML Aureliano SolisCOMPREHENSIVE METABOLIC [id number] 00:00:00* Test Item Value Reference Range Interpretation Comme nts GLUCOSE (test code = 2217) 89 MG/DL BUN (test code = 2208) 11 MG/DL CREATININE (test code = 2214) 0.57 MG/DL eGFR (2020 CKD-EPI) (test code = 09641) 128 ML/MIN/1.73 CALC BUN/CREAT (test code = 2235) 19 RATIO SODIUM (test code = 2231) 138 MEQ/L POTASSIUM (test code = 2228) 4.1 MEQ/L CHLORIDE (test code = 2215) 103 MEQ/L CARBON DIOXIDE (test code = 2206) 19 MEQ/L CALCIUM (test code = 2209) 9.6 MG/DL PROTEIN, TOTAL (test code = 2229) 7.0 G/DL ALBUMIN (test code = 2201) 4.4 G/DL CALC GLOBULIN (test code = 2240) 2.6 G/DL CALC A/G RATIO (test code = 2234) 1.7 RATIO BILIRUBIN, TOTAL (test code = 2207) 0.2 MG/DL ALKALINE PHOSPHATASE (test code = 2204) 65 U/L AST (test code = 2218) 28 U/L ALT (test code = 2219) 44 U/L Aureliano SolisVAGINAL PATHOGENS DNA [id number] 00:00:00* Test Item Value Reference Range Interpretation Comme nts MARIA GUADALUPE SPECIES (test code = ) POSITIVE G. VAGINALIS (test code = ) POSITIVE T. VAGINALIS (test code = ) NEGATIVE Aureliano SolisLIPID [id number] 00:00:00* Test Item Value Reference Range Interpretation Comme nts CHOLESTEROL (test code = 2210) 216 MG/DL TRIGLYCERIDES (test code = 2232) 186 MG/DL HDL CHOLESTEROL (test code = 2220) 45 MG/DL CALC LDL CHOL (test code = 2237) 139 MG/DL RISK RATIO LDL/HDL (test cod e = 2238) 3.09 RATIO Aureliano SolisHEMOGLOBIN [id number] 00:00:00* Test Item Value Reference Range Interpretation Comme nts HEMOGLOBIN A1c (test code = 08486) 5.4 % Aureliano SolisHIV 1/2 4TH GEN, RFLX [id number] 00:00:00* Test Item Value Reference Range Interpretation Comme nts HIV 1/2 4TH GEN, RFLX CONF ( test code = 3514) NON-REACTIVE Aureliano SolisRPR REFLEX TO T. PALLIDUM - [id number] 00:00:00* Test Item Value Reference Range Interpretation Comme nts RPR (test code = 66669) NON-REACTIVE RPR TITER (test code = 3500) NOT INDIC. TITER Aureliano SolisCT/NG, NAAT, [id number] 00:00:00* Test Item Value Reference Range Interpretation Comme nts CHLAMYDIA, NAAT, URINE (test code = 17295) NEGATIVE GONORRHEA, NAAT, URINE (test code = 12512) NEGATIVE Aureliano SolisHEPATITIS PROFILE (A,B,C)2024-02-29 00:00:00* Test Item Value Reference Range Interpretation Comme nts HEPATITIS A TOTAL AB (test c ode = 2725) REACTIVE HEPATITIS B SURF AG (test co de = 2739) NON-REACTIVE HEP B CORE TOTAL AB (test co de = 2729) NON-REACTIVE HEPATITIS B SURFACE AB (test code = 2737) NON-REACTIVE HEPATITIS C ANTIBODY (test c ode = 4675) NON-REACTIVE INTERPRETATION HEPATITIS A: (test code = 2552) (NOTE) INTERPRETATION HEPATITIS B: (test code = 36971) (NOTE) INTERPRETATION HEPATITIS C: (test code = 01268) (NOTE) Aureliano SolisHEPATITIS A IgM [REFLEX]2024-02-29 00:00:00* Test Item Value Reference Range Interpretation Comme nts HEPATITIS A IgM (test code = 2728) NON-REACTIVE Aureliano SolisHCG, [id number] 09:15:08* Test Item Value Reference Range Interpretation Comme nts HCG, QUANTITATIVE (test code = 2506) <5 MIU/ML SEE BELOW EXPEC JOANNA VALUES FOR HCG GST.AGE UNITS RANGE GST. AGE UNITS RANGE3 WEEKS MIU/ML 6-71 10 WEEKS MIU/ML 46,509-186,9774 WEEKS MIU/ML 10-750 12 WEEKS MIU/ML 27,832-210,6125 WEEKS MIU/ML 217-7,138 14 WEEKS MIU/ML 13,950-62,5306 WEEKS MIU/ML 158-31,795 15 WEEKS MIU/ML 12,039-70,9717 WEEKS MIU/ML 3,697-163,563 16 WEEKS MIU/ML 9,040-56,4518 WEEKS MIU/ML 32,065-149,571 17 WEEKS MIU/ML 8,175-55,8689 WEEKS MIU/ML 63,803-151,410 18 WEEKS MIU/ML 8,099-58,176MALES and NON- FEMALES . . . . . . . . MIU/ML 6-3DGSE-EYYPOUNGLZ FEMALES . . . . . . . . . . . . MIU/ML <=7 UNLESS OTHERWISE INDICATED, ALL TESTING PERFORMED AT [facility] [address] [place] [address] FIELD LABORATORY OPERATOR: EDU MILLIGAN M.D. [place] NUMBER [id number] [facility] [place] [id number] HCG, [id number] 00:00:00* Test Item Value Reference Range Interpretation Comme nts HCG, QUANTITATIVE (test code = 2506) <5 MIU/ML Aureliano F AustinHCG, [id number] 00:00:00* Test Item Value Reference Range Interpretation Comme nts HCG, QUANTITATIVE (test code = 2506) <5 MIU/ML Aureliano F AustinHCG, [id number] 00:00:00* Test Item Value Reference Range Interpretation Comme nts HCG, QUANTITATIVE (test code = 2506) <5 MIU/ML Aureliano F AustinHCG, [id number] 00:00:00* Test Item Value Reference Range Interpretation Comme nts HCG, QUANTITATIVE (test code = 2506) <5 MIU/ML Aureliano F Will
[2024-03-15 23:04] LABS: Absolute Eosinophils 0.2 K/uL (0-0.5); Absolute Lymphocytes (CBC) 3.9 K/uL (0.7-4.9); Absolute Monocytes 0.9 K/uL (0.1-1.3); Absolute Neutrophil 4.1 K/uL (1.8-8.0); Basophils % 0.4 % (0-1.3); Eosinophils % 2.1 % (0-4.4); Hematocrit 38.7 % (36.0-45.0); Hemoglobin 12.9 g/dL (12.0-15.0); Lymphocytes % 42.8 % (15.3-44.8); MCH 28.4 pg (27.0-35.0); MCHC 33.4 g/dL (32.0-36.0); MCV 84.9 fL (80-100); Monocytes % 9.5 % (3.3-12.3); Neutrophils % 45.2 % (41.7-73.7); Nucleated Red Blood Cells % 0.1 % (0-0); Platelets 366 thou/uL (152-406); RBC Red Blood Cell Count 4.56 M/uL (3.86-4.86); Red Cell Distribution Width 14.4 % (12.1-15.2)
[2024-03-15 23:43] LABS: Anion Gap 9.7 mEq/L (5.0-15.0); Potassium 3.7 mEq/L (3.5-5.1)
[2024-03-15 23:51] LABS: Specific Gravity 1.026 (1.005-1.030); Sqamous Epithelial 20-50 /HPF (None Seen); Urine Bacteria <20 /HPF (<20); Urine Bilirubin NEGATIVE (Negative); Urine Blood 3+ (OVER) (Negative); Urine Clarity Extremely Turbid (Clear); Urine Color Light-Orange (Yellow); Urine Crystals Unidentified Few /HPF (None Seen); Urine Culture Reflex Order NOT NEEDED; Urine Glucose NEGATIVE (Negative); Urine Ketones NEGATIVE (Negative); Urine Microscopic Reflex YN ORDER UMIC; Urine Mucus Slight /HPF (None Seen); Urine Nitrite NEGATIVE (Negative); Urine Protein 1+ (Negative); Urine RBC 21-50 /HPF (None Seen); Urine Urobilinogen Normal (Normal); Urine WBC <5 /HPF (<5); Urine pH 6.5 (5.0-7.0)
--- NOTE | 2024-03-16 01:19 | RAD REPORT ---
EXAM: Ultrasound OB level one < than 14 weeks CLINICAL DATA: 29 years Female bleeding, LMP: 12/16/2023, EGA: 13 weeks, 0 days, MARTÍN: 09/21/2024 TECHNICAL DATA: Sonographic imaging of the pelvis was performed transabdominally and endovaginally on 03/16/2024 at 12 : 03 AM COMPARISONS: No prior studies were available for comparison. FINDINGS: The uterus is mildly enlarged and measures: 13.4 x 6.0 x 7.9 cm. There is a small amount of fluid in the endocervical canal. There is a normal appearing intrauterine gestational sac. The average sac diameter measures 2.87 cm. Corresponding to a gestational age of 8 weeks, 0 days. A yolk sac is present measuring 0.21 cm. There is a pole present with a crown rump length of 1.53 cm corresponding to a gestational age of 7 weeks, 6 days Doppler imaging fails to demonstrate any evidence of heart tones The ovaries are not well visualized on this examination. No definite free fluid is seen in the pelvis . IMPRESSION: 1. Intrauterine with an estimated ultrasound age of 8 weeks, 0 days but no evidence of feta l heart tones consistent with intrauterine demise. 2. Small amount of endocervical free fluid. 3. The ovaries are not well visualized on this examination. These critical findings were discussed with Dr. Devon Lance on 03/16/2024 at 1:14 AM central time. Electronically signed by: Shivani Herrera DO 03/16/2024 01:[address] [facility] Due to temporary technical issues with the PACS/Chunnel.TVibe reporting system, reports are being sign ed by the in-house radiologist without review as a courtesy to ensure prompt reporting the interpreting rad iologist is fully responsible for the content of the report. Transcribed Date/Time: 03/16/2024 1:19 AM
--- NOTE | 2024-03-16 01:48 | ER ---
Nurse's Notes [facility] Name: Henna Reina Age: 29 yrs Sex: Female : 1995 Arrival Date: 03/15/2024 Time: 21:40 Bed 7 Private MD: Diagnosis: Incomplete spontaneous without complication Presentation: 03/15 22:25 Chief complaint: Patient states: Sunday OB said my HCG was 2000 about an hour ago I vc1 felt a warm gush and I am bleeding. Coronavirus screen: Client denies travel out of the [place] in the last 14 days. At this time, the client does not indicate any symptoms associated with coronavirus-19. Ebola Screen: Patient negative for fever greater than or equal to 101.5 degrees Fahrenheit, and additional compatible Ebola Virus Disease symptoms Patient denies exposure to infectious person. Patient denies travel to an Ebola-affected area in the 21 days before illness onset. No symptoms or risks identified at this time. Initial Sepsis Screen: Does the patient meet any 2 criteria? No. Patient's initial sepsis screen is negative. Does the patient have a suspected source of infection? No. Patient's initial sepsis screen is negative. Risk Assessment: Do you want to hurt yourself or someone else? Patient reports no desire to harm self or others. Onset of symptoms was March 15, 2024 at 21:30. 22:25 Method Of Arrival: Ambulatory vc1 22:25 Acuity: INGRID 3 vc1 Triage Assessment: 22:36 General: Appears in no apparent distress. comfortable, obese, well groomed, well vc1 developed, Behavior is calm, cooperative, appropriate for age. Pain: Denies pain. EENT: No deficits noted. No signs and/or symptoms were reported regarding the EENT system. Neuro: Level of Consciousness is awake, alert, obeys commands, Oriented to person, place, time, situation, Appropriate for age. Cardiovascular: Capillary refill < 3 seconds Patient's skin is warm and dry. Respiratory: Airway is patent Respiratory effort is even, unlabored, Respiratory pattern is regular, symmetrical, Breath sounds are clear bilaterally. GI: No deficits noted. No signs and/or symptoms were reported involving the gastrointestinal system. : Reports vaginal bleeding that is bright red, heavy flow. Derm: Skin is intact, is healthy with good turgor, Skin is dry, Skin is normal, Skin temperature is warm. Musculoskeletal: Circulation, motion, and sensation intact. Range of motion: intact in all extremities. 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 - Infectious Disease History:: Denies. - Social history:: Smoking status: Patient/guardian denies using tobacco, the patient reports quitting approximately 1 years ago. - Family history:: not pertinent. Screenin:34 [facility] ED Fall Risk Assessment (Adult) History of falling in the last 3 months, vc1 including since admission No falls in past 3 months (0 pts) Confusion or Disorientation No (0 pts) Intoxicated or Sedated No (0 pts) Impaired Gait No (0 pts) Mobility Assist Device Used No (0 pt) Altered Elimination No (0 pt) Score/Fall Risk Level 0 - 2 = Low Risk Oriented to surroundings, Maintained a safe environment, Educated pt \T\ family on fall prevention, incl call for assistance when getting out of bed, Hourly rounding (assess needs \T\ fall precautionary measures) done. Abuse screen: Denies threats or abuse. Nutritional screening: No deficits noted. Tuberculosis screening: No symptoms or risk factors identified. Assessment: 22:30 General: Appears comfortable, Behavior is calm, cooperative. Pain: Denies pain. Neuro: ha1 Level of Consciousness is awake, alert, obeys commands, Oriented to person, place, time, situation. Cardiovascular: Capillary refill < 3 seconds Patient's skin is warm and dry. Respiratory: Airway is patent Respiratory effort is even, unlabored, Respiratory pattern is regular, symmetrical. GI: Abdomen is round non-distended, obese. : Reports vaginal bleeding that is light flow, spotty, last three days. 23:30 Reassessment: Patient and/or family updated on plan of care and expected duration. Pain ha1 level reassessed. Patient is alert, oriented x 3, equal unlabored respirations, skin warm/dry/pink. 03/16 00:30 Reassessment: Patient and/or family updated on plan of care and expected duration. Pain ha1 level reassessed. Patient is alert, oriented x 3, equal unlabored respirations, skin warm/dry/pink. 01:30 Reassessment: Patient and/or family updated on plan of care and expected duration. Pain ha1 level reassessed. Patient is alert, oriented x 3, equal unlabored respirations, skin warm/dry/pink. Vital Signs: 03/15 22:25 BP 138 / 93; Pulse 89; Resp 16; Temp 98.4; Pulse Ox 98% ; Weight 107.5 kg; Height 5 ft. vc1 1 in. ; Pain 0/10; 23:30 BP 132 / 90; Pulse 82; Resp 17 S; Pulse Ox 98% on R/A; ha1 03/16 00:49 BP 124 / 80; Pulse 81; Resp 18 S; Pulse Ox 98% on R/A; ha1 01:30 BP 130 / 74; Pulse 78; Resp 18 S; Temp 98.1; Pulse Ox 99% on R/A; ha1 03/15 22:25 Body Mass Index 44.78 (107.50 kg, 154.94 cm) vc1 03/15 22:25 Pain Scale: Adult vc1 ED Course: 03/15 21:42 Patient arrived in ED. jj6 21:43 Devon Lance MD is Attending Physician. rt 22:32 Triage completed. vc1 22:34 Arm band placed on right wrist. vc1 22:36 Patient has correct armband on for positive identification. Bed in low position. Call vc1 light in reach. Pulse ox on. NIBP on. 22:46 Lu Chisholm RN is Primary Nurse. ha1 22:47 Abo/rh Typing Sent. ha1 22:47 Basic Metabolic Panel Sent. ha1 22:47 CBC with Diff Sent. ha1 22:47 Quantitative Hcg Sent. ha1 22:47 Inserted saline lock: 20 gauge in right antecubital area, using aseptic technique. ha1 Blood collected. Flushed with 10 mL NS. 03/16 00:38 US Transvaginal Ob In Process Unspecified. EDMS 02:12 No provider procedures requiring assistance completed. IV discontinued, intact, ha1 bleeding controlled, No redness/swelling at site. Pressure dressing applied. 02:13 Provided Education on: follow up with OB . ha1 Administered Medications: No medications were administered Medication: 02:13 VIS not applicable for this client. ha1 Outcome: 01:47 Discharge ordered by MD. rt 02:12 Discharged to home ambulatory, with family, ha1 02:12 Condition: stable 02:12 Discharge instructions given to patient, Instructed on discharge instructions, follow up and referral plans. Demonstrated understanding of instructions, follow-up care, 02:13 Patient left the ED. ha1 Signatures: Dispatcher [employer] EDMS Lizabeth Cagle [id number] Audrey Kyle RN RN vc1 Lu Chisholm RN RN ha1 Devon Lance MD MD rt Corrections: (The following items were deleted from the chart) 03/15 22:34 22:32 PMHx: None; vc1 vc1
--- NOTE | 2024-03-16 01:48 | EDPHYS ---
Physician Documentation [facility] Name: Henna Reina Age: 29 yrs Sex: Female : 1995 Arrival Date: 03/15/2024 Time: 21:40 Bed 7 Private MD: ED Physician Devon Lance HPI: 03/16 00:11 This 29 yrs old Female presents to ER via Ambulatory with complaints of EST 12 rt WKS GESTATION, Vaginal Bleeding. 00:11 Patient is a G3, P2 currently at 12 weeks who presents to the ED with vaginal spotting rt for past few days but states that had worsening bleeding, about to the level of a period Today with a small amount of tissue passage. Denies any abdominal pain, other acute complaints. She has not yet had a confirmatory ultrasound for this . Symptoms are moderate in severity, no other aggravating alleviating factors.. 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 - Infectious Disease History:: Denies. - Social history:: Smoking status: Patient/guardian denies using tobacco, the patient reports quitting approximately 1 years ago. - Family history:: not pertinent. ROS: 03/16 00:11 Positive for vaginal bleeding, Negative for urinary frequency, rt Constitutional: Negative for fever, chills, and weight loss, Cardiovascular: Negative for chest pain, palpitations, and edema, Respiratory: Negative for shortness of breath, cough, wheezing, and pleuritic chest pain, Abdomen/GI: Negative for abdominal pain, nausea, vomiting, diarrhea, and constipation, MS/Extremity: Negative for injury and deformity, Skin: Negative for injury, rash, and discoloration, Neuro: Negative for headache, weakness, numbness, tingling, and seizure, Exam: 00:11 Constitutional: This is a well developed, well nourished patient who is awake, alert, rt and in no acute distress. Head/Face: Normocephalic, atraumatic. Chest/axilla: Normal chest wall appearance and motion. Nontender with no deformity. No lesions are appreciated. Cardiovascular: Regular rate and rhythm with a normal S1 and S2. No gallops, murmurs, or rubs. Normal PMI, no JVD. No pulse deficits. Respiratory: Lungs have equal breath sounds bilaterally, clear to auscultation and percussion. No rales, rhonchi or wheezes noted. No increased work of breathing, no retractions or nasal flaring. Abdomen/GI: Soft, non-tender, with normal bowel sounds. No distension or tympany. No guarding or rebound. No evidence of tenderness throughout. Skin: Warm, dry with normal turgor. Normal color with no rashes, no lesions, and no evidence of cellulitis. MS/ Extremity: Pulses equal, no cyanosis. Neurovascular intact. Full, normal range of motion. Neuro: Awake and alert, GCS 15, oriented to person, place, time, and situation. Cranial nerves II-XII grossly intact. Motor strength 5/5 in all extremities. Sensory grossly intact. Cerebellar exam normal. Normal gait. Vital Signs: 03/15 22:25 BP 138 / 93; Pulse 89; Resp 16; Temp 98.4; Pulse Ox 98% ; Weight 107.5 kg; Height 5 ft. vc1 1 in. ; Pain 0/10; 23:30 BP 132 / 90; Pulse 82; Resp 17 S; Pulse Ox 98% on R/A; ha1 03/16 00:49 BP 124 / 80; Pulse 81; Resp 18 S; Pulse Ox 98% on R/A; ha1 01:30 BP 130 / 74; Pulse 78; Resp 18 S; Temp 98.1; Pulse Ox 99% on R/A; ha1 03/15 22:25 Body Mass Index 44.78 (107.50 kg, 154.94 cm) vc1 03/15 22:25 Pain Scale: Adult vc1 MDM: 03/15 22:24 Medical Screening Exam initiated rt 03/16 01:54 Differential diagnosis: Ectopic, threatened AB, incomplete AB. Data reviewed: vital rt signs, nurses notes, lab test result(s), radiologic studies. Counseling: I had a detailed discussion with the patient and/or guardian regarding the historical points, exam findings, and any diagnostic results supporting the discharge/admit diagnosis, lab results, radiology results, the need for outpatient follow up. 03/15 22:34 Order name: Abo/rh Typing; Complete Time: 23:54 rt 03/15 22:34 Order name: Basic Metabolic Panel; Complete Time: 23:54 rt 03/15 22:34 Order name: CBC with Diff; Complete Time: 23:54 rt 03/15 22:34 Order name: Quantitative Hcg; Complete Time: 23:54 rt 03/15 22:34 Order name: Urinalysis w/ reflexes; Complete Time: 23:54 rt 03/15 22:34 Order name: US Transvaginal Ob rt 03/15 22:34 Order name: IV Saline Lock; Complete Time: 22:47 rt 03/15 22:34 Order name: Labs collected and sent; Complete Time: 22:47 rt 03/15 22:34 Order name: NPO; Complete Time: 22:47 rt Administered Medications: No medications were administered Disposition Summary: 03/16/24 01:47 Discharge Ordered Notes: Location: Home rt Problem: new rt Symptoms: are unchanged rt Condition: Stable rt Diagnosis - Inevitable rt - Incomplete spontaneous without complication rt Followup: rt - With: Private Physician - When: 2 - 3 days - Reason: Discharge Instructions: - Discharge Summary Sheet rt - Incomplete Miscarriage rt Forms: - Medication Reconciliation Form rt - Antibiotic Education rt - Prescription Opioid Use rt - Patient Portal Instructions rt - Leadership Thank You Letter rt Signatures: Dispatcher [employer] Audrey Kamara RN RN vc1 Devon Lance MD MD rt Corrections: (The following items were deleted from the chart) 03/15 21:34 22:32 PMHx: None; 1 1
[2024-03-16 04:18] VITALS: BP 130/74; TEMP 98.1; O2SAT 99
== END 2024-03-16 02:13 | disposition home or self-care (01) ==
LOC: ER 21:40
DX: O03.4 Incomplete spontaneous abortion without complication (principal); Z87.891 Personal history of nicotine dependence
CPT/HCPCS: 36415; 76817; 80048; 81001; 84702; 85025; 86900; 86901; 99284